=== PATIENT | male | born 1985 | race Caucasian/White ===

== ENCOUNTER 2024-03-17 12:22 | Outpatient (OUT) | payer BC, SELFPAY ==
[2024-03-17 13:12] LABS: Albumin Level 3.8 g/dL (3.4-5.0); Anion Gap 13.6; BUN Creatinine Ratio 22.1; Calcium 9.5 mg/dL (8.5-10.1); Carbon Dioxide 26.4 mmol/L (21.0-32.0); Chloride 99 mmol/L (98-107); Chol HDL Ratio 3.2; Cholesterol 198 mg/dL (<=200); Estimated GFR (African America >60 (>=60); Estimated GFR (Non-African Ame >60 (>=60); Glucose 146 mg/dL (74-106); HDL Cholesterol 61 mg/dL (40-60); Phosphorus 2.8 mg/dL (2.6-4.7); Sodium 135 mmol/L (136-145); Triglycerides 144 mg/dL (<=150); VLDL CHOLESTEROL 28.8 mg/dL
[2024-03-17 13:13] LABS: Creatinine Urine Random 100.33 mg/dL (20.00-300.00); Microalbum Creatinine Ratio Ur 30.8 mg/g (0.0-29.9); Microalbumin Urine Random 3.1 mg/dL (<=30.0)
[2024-03-18 08:13] LABS: C-Peptide, Serum 1.7 ng/mL (1.1-4.4)
== END 2024-03-17 12:23 | disposition home or self-care (01) ==
LOC: LAB 12:30
PROVIDERS: PCP Internal Medicine; Visit Provider Internal Medicine
DX: E78.2 Mixed hyperlipidemia (principal); E11.65 Type 2 diabetes mellitus with hyperglycemia; Z79.4 Long term (current) use of insulin; E55.9 Vitamin D deficiency, unspecified
CPT/HCPCS: 36415; 80061; 80069; 82043; 82306; 82570; 84681

== ENCOUNTER 2025-01-03 14:44 | Emergency (ER) | payer BC, SELFPAY ==
[2025-01-03] VITALS (30 sets, daily range): BP systolic 131–138; BP diastolic 78–80; PULSE 74–92; TEMP 36.4; O2SAT 96–99; BMI 41.2
--- OUTSIDE RECORDS SUMMARY | 2025-01-03 14:50 | XMS_ITS | CCD ---
Demographics Address [address] [facility] [address] [place] [address] Preferred Language en Marital Status Christianity Affiliation Unknown Race White Ethnic Group Not or Lati no Author Organization [facility] Care Team Providers Care Curriculum Writer Name Role Phone Community, Outreach Primary Care Unavailable Laurence Jacome Attending Unavailable Laurence Jacome Admitting Unavailable Mummert DO, Yaya W Primary Care Provider PEACE GARCIA Attending Unavailable PEACE GARCIA Attending Unavailable Mummert DO, Yaya Primary Care Unavailable Mummert DO, Yaya Attending Unavailable Mummert DO, Yaya Primary Care Unavailable Mummert DO, Yaya Attending Unavailable Mummert DO, Yaya Attending Unavailable Mummert DO, Yaya Primary Care Unavailable Mummert DO, Yaya Attending Unavailable Mummert DO, Yaya Primary Care Unavailable Mummert DO, Yaya Primary Care Unavailable Mummert DO, Yaya Primary Care Unavailable Mummert DO, Yaya Primary Care Unavailable Mummert DO, Yaya Attending Unavailable Mummert DO, Yaya Primary Care Unavailable Mummert DO, Yaya Attending Unavailable Mummert DO, Yaya Primary Care Unavailable Allergies Allergy Classification Reported Allergen(s) Allergy Type Date of Onset Reaction(s) Facility (1 source) liraglutide; Translations: [Victoza] Drug Allergy [facility] Repository Medications Current Medications Medication Drug Class(es) Dates Sig (Normalized) Sig (Original) empagliflozin 25 mg oral tablet (7 sources) Sodium-Glucose Cotransporter 2 Inhibitor Start: 02-21-2024 take 1 tablet by mouth once daily empagliflozin (Jardiance) 25 MG Take 1 tablet by mouth Daily 02/21/2024 Active Start: 08-22-2023 take 1 tablet by waqas th once daily Empagliflozin (Jardiance) 10 mg tablet Active 10 MG PO Daily August 22, 2023 1:00am 1.5 ml insulin glargine 300 unt/ml pen injector (6 sources) Insulin Analog Start: 09-17-2023 insulin glargi ne (Toujeo SoloStar) 300 UNIT/ML injection Inject 50 Units under the skin Daily 09/17/2023 Active Insulin Glargine U-300 Conc (Toujeo Solostar U-300 Insulin) 300 unit/mL (1.5 mL) insulin pen (2 sources) Start: 10-28-2023 Insulin Glargi ne U-300 Conc (Toujeo Solostar U-300 Insulin) 300 unit/mL (1.5 mL) insulin pen Active 40 UNIT SUBCUT Daily October 28, 2023 9:40am Start: 08-22-2023 End: 10-28-2023 inject 30 [IU] by subcutaneous injection once daily Insulin Glargine U-300 Conc (Toujeo Solostar U-300 Insulin) 300 unit/mL (1.5 mL) insulin pen Discontinued 30 UNIT SUBCUT Daily August 22, 2023 1:00am October 28, 2023 9:40am lisinopril 20 mg oral tablet (7 sources) Angiotensin Converting Enzyme Inhibitor Start: 11-12-2023 take 1 tablet by mouth once daily lisinopril 20 MG tablet Take 1 tablet by mouth Daily 11/12/2023 Active Start: 08-22-2023 take 20 mg by mouth once daily Lisinopril Active 20 MG PO Daily August 22, 2023 1:00am metFORMIN hydrochloride 1000 mg oral tablet (7 sources) Biguanide Start: 08-22-2023 take 1 tablet by mouth in the morning metFORMIN (Glucophage) 1000 MG tablet Take 1 tablet by mouth in the morning and 1 tablet in the evening. Take with meals. 10/07/2023 Active mupirocin 0.02 mg/mg topical ointment (1 source) RNA Synthetase Inhibitor Antibacterial Start: 10-28-2023 Mupirocin Active 1 APPLIC TOPICAL Three times daily 07 04October 28, 2023 12:00am oseltamivir 75 mg oral capsule (1 source) Neuraminidase Inhibitor Start: 08-22-2023 take 1 capsule by mouth twice daily Oseltamivir (Tamiflu) 75 mg capsule Active 75 MG PO Twice daily 03 21August 22, 2023 1:00am rosuvastatin calcium 10 mg oral tablet (7 sources) HMG-CoA Reductase Inhibitor Start: 08-12-2023 take 1 tablet by mouth once daily rosuvastatin (Crestor) 10 MG tablet Take 1 tablet by mouth Daily 08/12/2023 Active valACYclovir 1000 mg oral tablet (1 source) Herpesvirus Nucleoside Analog DNA Polymerase Inhibitor, Herpes Simplex Virus Nucleoside Analog DNA Polymerase Inhibitor, Herpes Zoster Virus Nucleoside Analog DNA Polymerase Inhibitor Start: 10-28-2023 take 1000 mg by mouth every twelve hours Valacyclovir Active 1000 MG PO Every 12 hours 20 October 28, 2023 12:00am Problems Problem Classification Problem Date Documented Date Episodic/Chronic Diabetes mellitus with complications (4 sources) Hyperglycemia due to type 2 diabetes mellitus; Translations: [Type 2 diabetes mellitus with hyperglycemia] 04-13-2024 Chronic Diabetes mellitus without complication (1 source) Diabetes mellitus; Translations: [Type 2 diabetes mellitus without complications] 08-22-2023 Chronic Disorders of lipid metabolism (5 sources) Hypercholesterolemia ; Translations: [Pure hypercholesterolemia , unspecified] 08-22-2023 Chronic Essential hypertension (5 sources) Hypertensive disorder; Translations: [Essential (primary) hypertension] 08-22-2023 Chronic Immunizations and screening for infectious disease (1 source) Contact with or exposure to other viral diseases; Translations: [Exposure to 2019 novel coronavirus] 08-22-2023 Episodic Influenza (1 source) Influenza due to other identified influenza virus with other respiratory manifestations; Translations: [Influenza due to identified 2008 H1N1 influenza virus with other respiratory manifestations] 08-22-2023 Episodic Nutritional deficiencies (4 sources) Vitamin D deficiency; Translations: [Vitamin D deficiency, unspecified] 04-13-2024 Chronic Other aftercare (4 sources) Long-term current use of insulin; Translations: [buttermaker continuous churn (current) use of insulin] 04-13-2024 Episodic Other nutritional; endocrine; and metabolic disorders (4 sources) Severe obesity; Translations: [Class 3 severe obesity due to excess calories with serious comorbidity and body mass index (BMI) of 40.0 to 44.9 in adult (CMS/[facility]ERLY [facility])] 04-13-2024 Chronic Residual codes; unclassified (2 sources) High risk heterosexual behavior; Translations: [High-risk sexual behavior] Onset: 10-28-2023 10-28-2023 Episodic Results Test Name Value Interpretation Reference Range Facility Glucose (Bld) [Mass/Vol]Orde red By: Jackie Floyd on 08-04-2024 Glucose Blood, POC 125 mg/dL [facility] 08-04-2024 HbA1c (Bld) [Mass fraction] 9.4 % [facility] No Panel InformationOrdered By: Ajckie Everett on 08-04-2024 [facility] Glucose (Bld) [Mass/Vol]Orde red By: Jackiemilla Floyd on 04-13-2024 Glucose Blood, POC 133 mg/dL [facility] - Other Lab [facility] - Other Lab Results [id number] Normal [facility] Chlamydia/GC/Trich NAAon Chlamydia Trachomotis, WHITNEY Negative Normal Negative [facility] Comment on above: Performed By: #### H ERPES 1,2, GCCHLAMTRI #### [facility] , Neisseria Gonorrhoeae, WHITNEY Negative Normal Negative [facility] Comment on above: Performed By: #### H ERPES 1,2, GCCHLAMTRI #### [facility] , Trichomonas WHITNEY Negative Normal Negative [facility] Comment on above: Result Comment: Perf ormed at: = - [facility] [address] [id number] Field Crop Farmer: Lindsey Mckeon MD, Phone: [phone] Performed By: #### H ERPES 1,2, GCCHLAMTRI #### [facility] , Herpes Simplex 1 and 2, NAAo n 10-28-2023 HSV 1 WHITNEY Negative Normal Negative [facility] Comment on above: Result Comment: This test was developed and its performance characteristics determined by [facility]. It has not been cleared or approved by the Food and Drug Administration. Performed By: #### H ERPES 1,2, GCCHLAMTRI #### [facility] , HSV 2 WHITNEY Positive Critically abnormal Negative [facility] Comment on above: Result Comment: This test was developed and its performance characteristics determined by [facility]. It has not been cleared or approved by the Food and Drug Administration. Performed at: - [facility] [id number] [employer] Farmer: Og Wilson MD, Phone: [phone] PERFORMED BY: [facility] [place] [address] PATHOLOGIST SODIUM METHYLATE OPERATOR CARISA MATTHEWS M.D. Performed By: #### H ERPES 1,2, GCCHLAMTRI #### [facility] , COVID Cepheidon 08-22-2023 SARS-CoV-2 (COVID-19) RNA WHITNEY+probe Ql (Unsp spec) Negative [facility] No Panel Informationon 08-21 POC Influenza A (PCR) Positive [facility] POC Influenza B (PCR) Negative [facility] Vital Signs Date Time Vital Sign Value Performing Clinician Facility 08-04-2024 09:55-0500 Body height 189.2 cm Peace Garcia MD Work Phone: [facility] 08-04-2024 09:55-0500 Body mass index (BMI) [Ratio] 42.31 kg/m2 Peace Garcia MD Work Phone: [facility] 08-04-2024 09:55-0500 Body weight 151.5 kg Peace Garcia MD Work Phone: [facility] 08-04-2024 09:55-0500 Diastolic blood pressure 72 mm[Hg] Peace Garcia MD Work Phone: [facility] 08-04-2024 09:55-0500 Heart rate 78 /min Peace Garcia MD Work Phone: [facility] 08-04-2024 09:55-0500 Respiratory rate 18 /min Peace Garcia MD Work Phone: [facility] 08-04-2024 09:55-0500 SaO2% (BldA) [Mass fraction] 98 % Peace Garcia MD Work Phone: [facility] 08-04-2024 09:55-0500 Systolic blood pressure 150 mm[Hg] Peace Garcia MD Work Phone: [facility] 04-13-2024 10:12-0400 Body height 190.5 cm Peace Garcia MD Work Phone: [facility] 04-13-2024 10:12-0400 Body mass index (BMI) [Ratio] 40.25 kg/m2 Peace Garcia MD Work Phone: [facility] 04-13-2024 10:12-0400 Body weight 146.06 kg Peace Garcia MD Work Phone: [facility] 04-13-2024 10:12-0400 Diastolic blood pressure 80 mm[Hg] Peace Garcia MD Work Phone: [facility] 04-13-2024 10:12-0400 Heart rate 75 /min Peace Garcia MD Work Phone: [facility] 04-13-2024 10:12-0400 Respiratory rate 16 /min Peace Garcia MD Work Phone: [facility] 04-13-2024 10:12-0400 Systolic blood pressure 126 mm[Hg] Peace Garcia MD Work Phone: [facility] 10-28-2023 09:40-0400 Body height 190.5 cm [facility] 10-28-2023 09:40-0400 Body mass index (BMI) [Ratio] 38.9 kg/m2 [facility] 10-28-2023 09:40-0400 Body temperature 98.1 [degF] [facility] 10-28-2023 09:40-0400 Body weight 141.52 kg [facility] 10-28-2023 09:40-0400 Diastolic blood pressure 83 mm[Hg] [facility] 10-28-2023 09:40-0400 Heart rate 80 /min [facility] 10-28-2023 09:40-0400 Respiratory rate 18 /min [facility] 10-28-2023 09:40-0400 SaO2% (BldA) [Mass fraction] 98 % [facility] 10-28-2023 09:40-0400 Systolic blood pressure 140 mm[Hg] [facility] 08-22-2023 15:02-0500 Body height 190.5 cm [facility] 08-22-2023 15:02-0500 Body mass index (BMI) [Ratio] 40.4 kg/m2 [facility] 08-22-2023 15:02-0500 Body temperature 97.9 [degF] [facility] 08-22-2023 15:02-0500 Body weight 146.51 kg [facility] 08-22-2023 15:02-0500 Diastolic blood pressure 79 mm[Hg] [facility] 08-22-2023 15:02-0500 Heart rate 75 /min [facility] 08-22-2023 15:02-0500 Respiratory rate 18 /min [facility] 08-22-2023 15:02-0500 SaO2% (BldA) [Mass fraction] 97 % [facility] 08-22-2023 15:02-0500 Systolic blood pressure 130 mm[Hg] [facility] Encounters Encounter Date Encounter Type Care Provider Facility Start: 10-19-2024 End: 10-19-2024 ambulatory Yaya Mummert DO [facility] Start: 09-10-2024 ambulatory Yaya Mummert DO Faci [facility]ity: [facility] Start: 08-18-2024 ambulatory Yaya Mummert DO Faci lity: [facility] Start: 08-04-2024 End: 08-04-2024 Bamboo flowsheet Peace Garcia MD Work Phone: [facility] Start: 08-04-2024 End: 08-04-2024 Carissa flowsshaista Garcia MD Work Phone: [facility] Start: 08-04-2024 End: 08-04-2024 ambulatory PEACE GARCIA Not Available Start: 08-04-2024 End: 08-04-2024 Office outpatient visit 25 minutes Peace Garcia MD Work Phone: [facility] Comment on above: Type 2 diabetes flakita itus with hyperglycemia, with long-term current use of insulin (CMS/HCC) (Primary Dx); Vitamin D deficiency; Insulin long-term use (CMS/HCC); Hyperlipemia, mixed (CMS/HCC); Primary hypertension (CMS/HCC); Class 3 severe obesity due to excess calories with serious comorbidity and body mass index (BMI) of 40.0 to 44.9 in adult (CMS/HCC) Start: 04-13-2024 End: 04-13-2024 BamMeetricso Cylexheet Peace Garcia MD Work Phone: [facility] Start: 04-13-2024 End: 04-13-2024 Bolt.ioheet Peace Garcia MD Work Phone: [facility] Start: 04-13-2024 End: 04-13-2024 Office outpatient visit 25 minutes Peace Garcia MD Work Phone: [facility] Comment on above: Type 2 diabetes flakita itus with hyperglycemia, with long-term current use of insulin (CMS/HCC) (Primary Dx); Vitamin D deficiency; Insulin long-term use (CMS/HCC); Hyperlipemia, mixed (CMS/HCC); Primary hypertension (CMS/HCC); Class 3 severe obesity due to excess calories with serious comorbidity and body mass index (BMI) of 40.0 to 44.9 in adult ([facility]/HCC) Start: 04-13-2024 End: 04-13-2024 ambulatory PEACE GARCIA Not Available Start: 02-21-2024 End: 02-21-2024 ambulatory Yaya Mummert DO Facility[facility] Start: 02-12-2024 End: 02-12-2024 ambulatory Ayya Mummert DO Facility: [facility] Start: 01-29-2024 ambulatory Yaya Mummert DO Faci [facility]ity: [facility] Start: 01-02-2024 ambulatory Yaya Mummert DO Faci [facility]ity: [facility] Start: 12-26-2023 ambulatory Yaya Mummert DO Faci [facility]ity: [facility] Start: 11-12-2023 End: 11-12-2023 ambulatory Yaya Nugent DO Facility:[facility] Start: 10-28-2023 End: 10-28-2023 ambulatory Outreach [facility] Facility:[facility] Start: 10-28-2023 End: 10-28-2023 ambulatory [facility] Work Phone: Start: 10-28-2023 End: 10-28-2023 Patient encounter procedure [facility] Work Phone: Start: 08-22-2023 End: 08-22-2023 Patient encounter procedure [facility] Work Phone: Procedures Date Procedure Procedure Detail Performing Clinician Start: 08-04-2024 Gluc bld gluc mntr d ev cleared fda spec home use Peace Garcia MD Work Phone: Start: 04-13-2024 Gluc bld gluc mntr d ev cleared fda spec home use Peace Garcia MD Work Phone: Plan of Treatment Date Care Activity Detail Author Start: 12-01-2024 End: 12-01-2024 Patient encounter procedure 12/01/2024 9:50 AM EDT Office Visit [facility] [address] [place] [id number] Peace Gracia MD [address] [place] [address] [facility] Start: 08-03-2024 End: 08-03-2024 Patient encounter procedure 08/03/2024 9:40 AM EST [facility] [address] [place] [phone] Peace Garcia MD [address] [place] [address] [facility] Start: 04-13-2024 End: 04-13-2024 Patient encounter procedure 04/13/2024 10:10 AM EDT Office Visit [facility] [address] [place] [address] Peace Garcia MD [address] [place] [address] Type 2 diabetes mellitus with hyperglycemia, with long-term current use of insulin ([facility]) [facility] Comment on above: Type 2 diabetes flakita itus with hyperglycemia, with long-term current use of insulin ([facility]) [facility] Immunizations Immunization Date Immunization Notes Care Provider Fa cili 04-12-2022 influenza, injectabl e, quadrivalent, preservative free Peace Garcia MD Work Phone: [facility] 03-30-2019 influenza, injectabl e, quadrivalent, preservative free Peace Garcia MD Work Phone: [facility] Payers Date Payer Category Payer Self-pay 2019 [facility] er [id number] 2019 Unknown [id number] 1984 Unknown [id number] [id number] 1984 Unknown [id number] [id number] 1984 Unknown [id number] [id number] [id number] 1984 Unknown [id number] [id number]. [id number] 1984 Unknown [id number] [id number]. 2.8 1984 Unknown [id number]. [id number] 1984 Unknown [id number] [id number] 1984 Unknown [id number] [id number] Unknown [id number] [id number] Social History Date Type Detail Facility Start: 08-22-2023 Tobacco smoking status DCIS Never smoked tobacco (finding) [facility] Start: 1985 Sex Assigned At Male F [facility] Tobacco smoking status [facility] Tobacco smoking consumption unknown [facility] Start: 1985 Sex assigned at Not on file [facility] Gender identity Not on file [facility] Medication management note 10-19-2024 Note Date & Type Note Facility 10-19-2024 Note Entered by CLARENCE GONZALEZ MA on October 19, 2024 08:06:36 EDT From: SHAHRAM GONZALEZ MA To: [facility]/pharmacy #[id number] Sent: 10/19/2024 08:06:36 EDT Subject: Medication Management Submitted: Complete:rosuvastatin (rosuvastatin 10 mg oral tablet) Signed by SHAHRAM GONZALEZ MA 10/19/2024 08:06:00 EDT Approved with modifications: rosuvastatin (ROSUVASTATIN CALCIUM 10 MG TAB) TAKE 1 TABLET BY MOUTH EVERY DAY Qty: 90 tab(s) Days Supply: 90 Refills: 3 Substitutions Allowed Route To Pharmacy - [facility]/pharmacy #[id number] Signed by SHAHRAM GONZALEZ MA Patient matched by SHAHRAM GONZALEZ MA on 10/19/2024 08:03:45 EDT From: [id number] To: Yaya Nugent DO, DO Sent: October 17, 2024 6:43:07 AM CDT Subject: Medication Management Due: October 18, 2024 12:19:22 AM CDT On Hold Pending Signature Dispensed Drug: rosuvastatin (rosuvastatin 10 mg oral tablet), TAKE 1 TABLET BY MOUTH EVERY DAY Quantity: 90 tab(s) Days Supply: 90 Refills: 3 Substitutions Allowed Notes from Pharmacy: [facility] History of Present illness Narrative 08-04-2024 Peace Garcia MD - 08/04/2024 9:40 AM EST Note Date & Type Note Facility 08-04-2024 History of Presen t illness Narrative Pat Mejia is a 39 y.o. male No ref. provider found presents with chief complaint of Diabetes and Follow-up HPI: IM 07/2024 Follow-up visit 08/04/2024 A1c with his primary 9.4, blood sugar in our office 125, currently is on Toujeo 55 units, Jardiance 25 mg once a day, metformin 1000 twice a day. IM 03/2024 Follow-up visit 04/13/2024 A1c with his primary 8.4, blood sugar in our office 133, lab done C-peptide 1.7, vitamin-D replaced by his PCP, total cholesterol 196, triglycerides 144, HDL 61, LDL 109, albumin over creatinine within normal limits, currently is on Toujeo 50 units, Jardiance 25 mg once a day, metformin 1000 twice a day. HPI: 11/2023 New patient sent from Dr. Yaya Nugent for uncontrolled diabetes. A1c in our office 8.1. Blood sugar 139. He has diabetes since 2011. No complication other than neuropathy. He is currently on Toujeo 40 and Jardiance 25, metformin 1000 twice a day. 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 Pioglitazone does not like it, so he stop it. He has recurrent pancreatitis, twice for GLP, so he cannot use it anymore. SUBJECTIVE: MEDICATIONS: Current Outpatient Medications Medication Instructions empagliflozin (Jardiance) 25 MG 1 tablet, Daily lisinopril 20 MG tablet 1 tablet, Daily metFORMIN (Glucophage) 1000 MG tablet 1 tablet, 2 times daily with meals rosuvastatin (Crestor) 10 MG tablet 1 tablet, Daily Toujeo SoloStar 50 Units, Daily ALLERGIES: No Known Allergies Past Medical History: Diagnosis Date Dietary counseling and surveillance HLD (hyperlipidemia) ([facility]) HTN (hypertension) ([facility]) Obesity with body mass index (BMI) of 30.0 to 39.9 Type 2 diabetes mellitus with hyperglycemia ([facility]) Vitamin D deficiency Past Surgical History: Procedure Laterality Date KNEE SURGERY Left NOSE SURGERY REVIEW OF SYMPTOMS: 14 POINT OF SYSTEM REVIEWED AND NEGATIVE OBJECTIVE: Constitutional: Afebrile @ home; no weakness or night sweats SKIN: No change in skin color; no itching, rash or lesions; no hair loss; HEENT: No HAs or injury; no dizziness; No difficulty with vision; no eye pain, discharge or lesions; no hearing loss or difficulty; no nasal discharge, NECK: No pain, limitation of motion, lumps or swollen glands RESP: No cough, wheezing or difficulty breathing. No CP with breathing; CARDIO: No CP , SOB or fatigue, No edema, palpitations or dyspnea with exertion GI: No N/V/D or abd. pain; good appetite with no recent change. No heart burn, liver or gallbladder disease; no rectal bleeding or pain : No urinary pain , frequency or odor. MUSCULOSKELETAL: No muscle pain or cramps; no extremity weakness.No joint pain, stiffness, swelling or limitation of movement NEUROLOGY: No H/O seizures, stroke or fainting. No weakness, tremors. Hematology: No bleeding problems or excessive bruising ENDOCRINE: No increase in hunger, thirst or urination; admits compliance to medical management plan Feet: numbness tingling no , ulcers or skin break no Lab Results Component Value Date HGBA1C 9.4 08/04/2024 Lab Results Component Value Date GLU 125 08/04/2024 GLU 133 04/13/2024 GLU 155 (H) 07/19/2022 11/26/2023 11:25 AM 04/13/2024 10:12 AM 08/04/2024 9:55 AM Vitals BMI 39.87 kg/m2 40.25 kg/m2 42.31 kg/m2 BSA (m2) 2.77 m2 2.78 m2 2.83 m2 Systolic 118 126 150 Diastolic 78 80 72 Heart Rate 71 75 78 SpO2 99 % 98 % Resp 18 16 18 Height (in) 6' 3 6' 3 6' 2.5 Weight (lb) 319 322 334 Visit Report Report Report ASSESSMENT AND PLAN: Assessment/Plan Diagnoses and all orders for this visit: Type 2 diabetes mellitus with hyperglycemia, with long-term current use of insulin ([facility]) - POCT glucose manually resulted - POCT glycosylated hemoglobin (Hb A1C) docked device I will c/o his Toujeo to 55 units at bedtime, continue with metformin 1000 twice a day, continue with Jardiance 25 mg once a day we will see him in 4 months. Vitamin D deficiency Insulin long-term use ([facility]) Hyperlipemia, mixed ([facility]) Primary hypertension ([facility]) Class 3 severe obesity due to excess calories with serious comorbidity and body mass index (BMI) of 40.0 to 44.9 in adult ([facility] Diet and exercise reviewed with the patient Follow up in about 4 months (around 12/02/2024). documented in this encounter [facility] Medication management note 05-20-2024 Note Date & Type Note Facility 05-20-2024 Note Entered by CLARENCE GONZALEZ MA on May 20, 2024 14:32:29 EST From: SHAHRAM GONZALEZ MA To: [facility][id number] Sent: 05/20/2024 14:32:28 EST Subject: Medication Management Submitted: Complete:insulin glargine (Toujeo SoloStar 300 units/mL subcutaneous solution) Signed by SHAHRAM GONZALEZ MA 05/20/2024 14:32:00 EST Approved with modifications: insulin glargine (TOUJEO SOLOSTAR 300 UNIT/ML) INJECT 30 UNITS UNDER THE SKIN ONCE DAILY Qty: 9 unknown unit Days Supply: 90 Refills: 3 Substitutions Allowed Route To Pharmacy - [facility]/pharmacy #[id number] Signed by SHAHRAM GONZALEZ MA From: [facility] [id number] To: Yaya Nugent DO, DO Sent: May 20, 2024 1:25:00 PM [employer] Subject: Medication Management Due: May 21, 2024 12:03:22 AM CAR PRE [employer]ER On Hold Pending Signature Dispensed Drug: insulin glargine (Toujeo SoloStar 300 units/mL subcutaneous solution), INJECT 30 UNITS UNDER THE SKIN ONCE DAILY Quantity: 9 unknown unit Days Supply: 90 Refills: 1 Substitutions Allowed Notes from Pharmacy: [facility] History of Present illness Narrative 04-13-2024 Peace Garcia MD - 04/13/2024 10:10 AM EDT Note Date & Type Note Facility 04-13-2024 History of Presen t illness Narrative Pat Mejia is a 39 y.o. male No ref. provider found presents with chief complaint of Diabetes and Follow-up (LAB IN EPIC/A1C 6 WEEKS AGO 8.5%) HPI: IM 03/2024 Follow-up visit 04/13/2024 A1c with his primary 8.4, blood sugar in our office 133, lab done C-peptide 1.7, vitamin-D replaced by his PCP, total cholesterol 196, triglycerides 144, HDL 61, LDL 109, albumin over creatinine within normal limits, currently is on Toujeo 50 units, Jardiance 25 mg once a day, metformin 1000 twice a day. HPI: 11/2023 New patient sent from Dr. Yaya Nugent for uncontrolled diabetes. A1c in our office 8.1. Blood sugar 139. He has diabetes since 2011. No complication other than neuropathy. He is currently on Toujeo 40 and Jardiance 25, metformin 1000 twice a day. 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 Pioglitazone does not like it, so he stop it. He has recurrent pancreatitis, twice for GLP, so he cannot use it anymore. SUBJECTIVE: MEDICATIONS: Current Outpatient Medications Medication Instructions empagliflozin (Jardiance) 25 MG 1 tablet, Daily lisinopril 20 MG tablet 1 tablet, Daily metFORMIN (Glucophage) 1000 MG tablet 1 tablet, 2 times daily with meals rosuvastatin (Crestor) 10 MG tablet 1 tablet, Daily Toujeo SoloStar 50 Units, Daily ALLERGIES: No Known Allergies Past Medical History: Diagnosis Date Dietary counseling and surveillance HLD (hyperlipidemia) ([facility]) HTN (hypertension) ([facility]) Obesity with body mass index (BMI) of 30.0 to 39.9 Type 2 diabetes mellitus with hyperglycemia ([facility]) Vitamin D deficiency Past Surgical History: Procedure Laterality Date KNEE SURGERY Left NOSE SURGERY REVIEW OF SYMPTOMS: 14 POINT OF SYSTEM REVIEWED AND NEGATIVE OBJECTIVE: Constitutional: Afebrile @ home; no weakness or night sweats SKIN: No change in skin color; no itching, rash or lesions; no hair loss; HEENT: No HAs or injury; no dizziness; No difficulty with vision; no eye pain, discharge or lesions; no hearing loss or difficulty; no nasal discharge, NECK: No pain, limitation of motion, lumps or swollen glands RESP: No cough, wheezing or difficulty breathing. No CP with breathing; CARDIO: No CP , SOB or fatigue, No edema, palpitations or dyspnea with exertion GI: No N/V/D or abd. pain; good appetite with no recent change. No heart burn, liver or gallbladder disease; no rectal bleeding or pain : No urinary pain , frequency or odor. MUSCULOSKELETAL: No muscle pain or cramps; no extremity weakness.No joint pain, stiffness, swelling or limitation of movement NEUROLOGY: No H/O seizures, stroke or fainting. No weakness, tremors. Hematology: No bleeding problems or excessive bruising ENDOCRINE: No increase in hunger, thirst or urination; admits compliance to medical management plan Feet: numbness tingling , ulcers or skin break No results found for: HGBA1C Lab Results Component Value Date GLU 133 04/13/2024 GLU 155 (H) 07/19/2022 GLU 161 (H) 07/18/2022 Visit Vitals BP 126/80 Pulse 75 Resp 16 Ht 6' 3 Wt 322 lb BMI 40.25 kg/m BSA 2.78 m ASSESSMENT AND PLAN: Assessment/Plan Diagnoses and all orders for this visit: Type 2 diabetes mellitus with hyperglycemia, with long-term current use of insulin ([facility]) - POCT glucose manually resulted I will increase his Toujeo to 55 units at bedtime, continue with metformin 1000 twice a day, continue with Jardiance 25 mg once a day we will see him in 4 months, he is not interested with prandial insulin at this time. Vitamin D deficiency Level 17 replace by his PCP Insulin long-term use ([facility]) Hyperlipemia, mixed ([facility]) LDL 109 ON 03/2024, continue with Crestor Primary hypertension ([facility]) Class 3 severe obesity due to excess calories with serious comorbidity and body mass index (BMI) of 40.0 to 44.9 in adult ([facility]) Diet and exercise reviewed with the patient Follow up in about 4 months (around 08/14/2024). documented in this encounter [facility] Medication management note 02-21-2024 Note Date & Type Note Facility 02-21-2024 Note Entered by CLARENCE GONZALEZ MA on February 21, 2024 10:12:44 EDT From: SHAHRAM GONZALEZ MA To: [facility]/pharmacy #[id number] Sent: 02/21/2024 10:12:44 EDT Subject: Medication Management Submitted: Complete:empagliflozin (empagliflozin 25 mg oral tablet) Signed by SHAHRAM GONZALEZ MA 02/21/2024 10:12:00 EDT Approved with modifications: empagliflozin (JARDIANCE 25 MG TABLET) TAKE 1 TABLET BY MOUTH EVERY MORNING Qty: 90 tab(s) Days Supply: 90 Refills: 3 Substitutions Allowed Route To Pharmacy - [facility]/pharmacy #[id number] Signed by SHAHRAM GONZALEZ MA Patient matched by SHAHRAM GONZALEZ MA on 02/21/2024 10:12:16 EDT From: [address] [id number] To: Yaya Nugent DO, DO Sent: February 21, 2024 9:06:59 AM CDT Subject: Medication Management Due: February 22, 2024 12:08:35 AM CDT On Hold Pending Signature Dispensed Drug: empagliflozin (Jardiance 25 mg oral tablet), TAKE 1 TABLET BY MOUTH EVERY MORNING Quantity: 90 tab(s) Days Supply: 90 Refills: 3 Substitutions Allowed Notes from Pharmacy: [facility] Medication management note 11-12-2023 Note Date & Type Note Facility 11-12-2023 Note Entered by CLARENCE GONZALEZ on November 12, 2023 07:48:50 EDT From: SHAHRAM [facility]ON[facility]ALEZ [id number] Sent: 11/12/2023 07:48:50 EDT Subject: Medication Management Submitted: Complete:lisinopril (lisinopril 20 mg oral tablet) Signed by SHAHRAM GONZALEZ 11/12/2023 07:48:00 EDT Approved with modifications: lisinopril (LISINOPRIL 20 MG TABLET) TAKE 1 TABLET BY MOUTH EVERY DAY Qty: 90 tab(s) Days Supply: 90 Refills: 3 Substitutions Allowed Route To Pharmacy - [facility]/pharmacy #[id number] Signed by SHAHRAM GONZALEZ Patient matched by SHAHRAM GONZALEZ on 11/12/2023 07:46:00 EDT From: [address] [id number] To: Yaya Nugent DO, DO Sent: November 09, 2023 6:40:46 AM CDT Subject: Medication Management Due: November 10, 2023 12:12:11 AM CDT On Hold Pending Signature Dispensed Drug: lisinopril (lisinopril 20 mg oral tablet), TAKE 1 TABLET BY MOUTH EVERY DAY Quantity: 90 tab(s) Days Supply: 90 Refills: 1 Substitutions Allowed Notes from Pharmacy: [facility] Evaluation note Note Date & Type Note Facility Evaluation note Diagnosis Onset Date Contact with and (suspected) exposure to covid-19 noneactive Influenza A (H1N1) noneactiv e High risk sexual behavior no neactive [facility] Work Phone: Evaluation note Note Date & Type Note Facility Evaluation note Diagnosis Type 2 diabetes mellitus with hyperglycemia, with long-term current use of insulin ([facility])- Primary Vitamin D deficiency Insulin long-term use ([facility]) Encounter for long-term (current) use of insulin Hyperlipemia, mixed ([facility]) Mixed hyperlipidemia Primary hypertension ([facility]) Unspecified essential hypertension Class 3 severe obesity due to excess calories with serious comorbidity and body mass index (BMI) of 40.0 to 44.9 in adult ([facility]) documented in this encounter [facility] Evaluation note Note Date & Type Note Facility Evaluation note Diagnosis Type 2 diabetes mellitus with hyperglycemia, with long-term current use of insulin ([facility])- Primary Vitamin D deficiency Insulin long-term use ([facility]) Encounter for long-term (current) use of insulin Hyperlipemia, mixed ([facility]) Mixed hyperlipidemia Primary hypertension ([facility]) Unspecified essential hypertension Class 3 severe obesity due to excess calories with serious comorbidity and body mass index (BMI) of 40.0 to 44.9 in adult ([facility]) documented in this encounter [facility] Chief Complaint and Reason for Visit Chief Complaint lost voice, cough rash on lower region Reason for Visit Contact with and (gonzales spected) exposure to covid-19 Influenza A (H1N1) High risk sexual behavior Family History No Family History Records Found Relationship Condition Age at Onset Recorded Date/T isaiah father Heart disease Unknown Not Specified Diabetes mellitus Unknown Advance Directives No Advanced Directives Records Found Advance Directive Response Recorded Date/ Time Advance Directives No August 21 3:58pm Summary Purpose Additional Source Comments Care Teams (unrecognized sec tion and content) Team Status: Active Member Role Status Dates [facility] Primary Care Provider Active Team Status: Inactive Member Role Status Dates Jailene Monique APRN Attending Provider Active Start: August 22, 2023 End: August 22, 2023 [facility] Primary Care Provider Active Start: August 22, 2023 End: August 22, 2023 Team Status: Inactive Member Role Status Dates [facility] Primary Care Provider Active Start: October 28, 2023 End: October 28, 2023 Laurence Jacome APRN Attending Provider Active Start: October 28, 2023 End: October 28, 2023 Curriculum Writer Relationship Specialty Start Date End Date Yaya Nugent DO [address] [place] [phone] PCP - General Internal Medicine 02/07/24 Curriculum Writer Relationship Specialty Start Date End Date Yaya Nugent DO [address] [place] [address] PCP - General Internal Medicine 02/07/24 Curriculum Writer Relationship Specialty Start Date End Date Yaya Nugent DO [address] [place] [phone] PCP - General Internal Medicine 02/07/24 Curriculum Writer Relationship Specialty Start Date End Date Yaya Nugent DO [address] [place] [address] PCP - General Internal Medicine 02/07/24 Goals (unrecognized section and content) Goals may be documented in a n alternate section (unrecognized sect ion and content) No Status Records FoundNo Status Records FoundNo Status Records Found INFORMATION SOURCE (unrecogn ized section and content) DATE CREATED AUTHOR 11/05/2023 [facility] DATE CREATED AUTHOR AUTHOR'S ORGANIZ ATION 08/05/2024 [facility] DATE CREATED AUTHOR AUTHOR'S ORGANIZ ATION 10/22/2024 [facility] Reason for Visit (unrecogniz ed section and content) Reason Comments Diabetes Follow-up LAB IN RCNAB1K 6 WE AGO 8.5% Reason Comments Diabetes Follow-up FOR RECORDS PERTAINING TO PATIENTS WHO ARE OR HAVE BEEN ENROLLED IN A CHEMICAL DEPENDENCY/SUBSTANCEABUSE PROGRAM, SOME INFORMATION MAY BE OMITTED. This clinical summary was aggregated from multiple sources. Caution should be exercised in using it in the provision of clinical care. This summary normalizes information from multiple sources, and as a consequence, information in this document may materially change the coding, format and clinical context of patient data. In addition, data may be omitted in some cases. CLINICAL DECISIONS SHOULD BE BASED ON THE PRIMARY CLINICAL RECORDS. [employer] provides no warranty or guarantee of the accuracy or completeness of information in this document.
--- NOTE | 2025-01-03 14:54 | ECG_ITS ---
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 Measurements Intervals [place] Rate: 88 P: 56 IN: 158 QRS: 17 QRSD: 100 T: 30 QT: 374 QTc: 420 Interpretive Statements 1100 Sinus rhythm 9110 normal ECG No previous ECG available for comparison Electronically Signed On 01-03-2025 15:39:11 EDT by MARTÍNEZ GEORGE M.D.
--- NOTE | 2025-01-03 14:55 | XR_ITS ---
The [address] [address] Patient Name: PAT MICHAEL MRN: [id number] date: 1985 Sex: M Assigned Patient Location: ER Current Patient Location: ER Accession/Order Number: [id number] Exam Date: 01/03/2025 15:42 Report Date: 01/03/2025 15:43 At the request of: NERI CORNELIUS MD Procedure: XR chest 1V PA CHEST: CLINICAL HISTORY: pain COMPARISON: None Findings: Low lung volumes. Prominent cardiac silhouette likely technical. No definite airspace disease effusion or pneumothorax. XR/XR chest 1V IMPRESSION: Low lung volumes with slight prominent cardiac silhouette likely testicle. No definite acute airspace disease. Impression dictated by: Jean Paul Anderson M.D. 01/03/2025 3:43 PM Dictation Location: [place] [address] Electronically authenticated by: [id number] Y Date: 01/03/2025 15:43
[2025-01-03 15:06] LABS: Hematocrit 42.8 % (42.0-54.0); Hemoglobin 14.6 g/dL (14.0-18.0); Immature Granulocytes Abs Auto 0.04 10^3/uL (0.00-0.03); Immature Granulocytes Pct Auto 0.3 % (0.0-0.5); Lymphocytes Absolute Auto 1.7 10^3/uL (1.2-3.8); Mean Corpuscular HGB Conc 34.1 g/dL (29.9-35.2); Mean Corpuscular Hemoglobin 32.2 pg (25.9-34.0); Mean Corpuscular Volume 94.5 fL (80.0-94.0); Platelet Count 235 10^3/uL (150-450); Red Blood Count 4.53 10^6/uL (4.70-6.10); White Blood Count 13.2 10^3/uL (4.0-11.0)
[2025-01-03 15:26] LABS: Anion Gap 14.8
[2025-01-03 15:29] LABS: Alanine Aminotransferase 28 U/L (16-63); Albumin Globulin Ratio 0.9; Albumin Level 3.6 g/dL (3.4-5.0); Alkaline Phosphatase 97 U/L (46-116); Aspartate Amino Transferase 19 U/L (15-37); Blood Urea Nitrogen 17.0 mg/dL (7.0-18.0); Calcium 9.6 mg/dL (8.5-10.1); Carbon Dioxide 27.3 mmol/L (21.0-32.0); Chloride 101 mmol/L (98-107); Estimated GFR (African America >60 (>=60 mL/min/1.73m^2); Estimated GFR (Non-African Ame >60 (>=60 mL/min/1.73m^2); Globulin 4.2 g/dL; Glucose 135 mg/dL (74-106); Potassium 4.1 mmol/L (3.5-5.1); Sodium 139 mmol/L (136-145); Total Protein 7.8 g/dL (6.4-8.2)
[2025-01-03 15:31] LABS: INR 1.00; Prothrombin Time 10.6 sec (9.0-11.6)
[2025-01-03] MEDS: FAMOTIDINE/PF 20 MG/2 ML VIAL IV (15:31)
[2025-01-03] MEDS: KETOROLAC TROMETHAMINE 30 MG/ML VIAL IVP (15:31)
--- NOTE | 2025-01-03 15:36 | CT_ITS ---
The [address] [address] Patient Name: PAT MICHAEL MRN: [id number] date: 1985 Sex: M Assigned Patient Location: ER Current Patient Location: ER Accession/Order Number: [id number] Exam Date: 01/03/2025 16:34 Report Date: 01/03/2025 16:54 At the request of: NERI CORNELIUS MD Procedure: CT abdomen pelvis wo con CT ABDOMEN AND PELVIS WITHOUT INTRAVENOUS CONTRAST: CLINICAL HISTORY: RUQ PAIN epigastric pain COMPARISON: None TECHNIQUE: Spiral images were obtained through the abdomen and pelvis without intravenous contrast. This CT exam was performed using one or more following dose reduction techniques: Automated exposure control, adjustment of the mA and/or kV according to patient size, or use of iterative reconstruction technique. FINDINGS: Lung Bases: No airspace opacity Organs:Cholelithiasis. Low attenuation liver may suggest fatty infiltration. Right interpolar hypodensity suggestive of cysts. Questionable haziness pancreatic head neck region could be technical or related to artifact. Otherwise negative for nephrolithiasis or hydronephrosis. Otherwise spleen, adrenals, pancreas unremarkable. No definite peripancreatic fluid collections. GI: Mild to moderate retained stool the colon. No bowel obstruction. Appendix unremarkable.[ Pelvis:[Bladder and prostate unremarkable.] Peritoneum/Retroperitoneum:No free air or free fluid. Mild scattered aortic plaque.[ Abd wall/Bones: Multilevel degenerative change. CT/CT abdomen pelvis wo con IMPRESSION: Cholelithiasis and fatty infiltration liver. Questionable haziness pancreatic head neck junction could be technical or related to artifact. Correlate with pancreatic enzymes and history. Otherwise negative acute inflammatory process or bowel obstruction. Impression dictated by: Jean Paul Anderson M.D. 01/03/2025 4:54 PM Dictation Location: [place] [address] Electronically authenticated by: [id number] Y Date: 01/03/2025 16:54
[2025-01-03 16:09] LABS: Lipase 185.0 U/L (16.0-77.0)
--- NOTE | 2025-01-03 17:23 | ED_ITS ---
HPI HPI - General Adult General Chief complaint: Chest Pain Stated complaint: abdominal and chest pain Time Seen by Provider: 01/03/25 14:54 Source: patient Mode of arrival: walk-in Limitations: no limitations History of Present Illness HPI narrative: Patient with history of diabetes as well as hyperlipidemia is coming to the ER with 2 days history of right upper quadrant pain that has been getting worse, it started yesterday and according to the patient the pain is radiating to his back, the pain is not associate with nausea or vomiting and change in appetite, the patient mentioned that the pain was not related to food or eating He mentioned also that he have a very distant history of pancreatitis at that time he was told that it is due to medication as he was taking Ozempic Patient denies any fever or chills Related Data Home Medications �Medication �Instructions �Recorded �Confirmed empagliflozin 25 mg tablet 25 mg PO DAILY 01/03/25 (Jardiance) insulin glargine U-300 conc 300 55 unit subcut Q24H 01/03/25 unit/mL (1.5 mL) subcutaneous pen (Toujeo SoloStar U-300 Insulin) lisinopril 20 mg tablet 20 mg PO DAILY 01/03/2512/16 metformin 1,000 mg tablet 1,000 mg PO BID 01/03/25 rosuvastatin 10 mg tablet 10 mg PO DAILY 01/03/2512/16 Allergies Allergy/AdvReac Type Severity Reaction Status Date / Time No Known Drug Allergies Allergy Verified 01/03/25 14:53 Opioid HPI Opioid Management Most Recent Opioid Data: Last Pain Scale 8 Today, 15:03 Review of Systems ROS Status of ROS 10 or more systems reviewed and unremark able except as noted in history and below [facility] Medical History (Updated 01/03/25 @ 18:13 by Nayely Loredo MD) Pancreatitis �K85.90 - Acute pancreatitis without necrosis or infection, unspecified (ICD- 10) Hyperlipemia �E78.5 - Hyperlipidemia, unspecified (ICD-10) Hypertension �I10 - Essential (primary) hypertension (ICD-10) Diabetes �E11.9 - Type 2 diabetes mellitus without complications (ICD-10) Social History Little interest or pleasure in doing things: not at all Feeling down, depressed, or hopeless: not at all Exam Narrative Exam Narrative: Nurses notes and vital signs reviewed and patient is not hypoxic. General: Well-appearing and in no apparent distress. Skin: Warm, dry, no pallor noted. No rash. Head: Normocephalic, atraumatic. Neck: Supple, non-tender. Eye: Pupils are equal, round and EOMI. No scleral icterus. Cardiovascular: Regular Rate and Rhythm without murmur, gallop or rub. Respiratory: No accessory muscle use or respiratory distress. Lungs are clear to auscultation, no wheezing, rales or rhonchi Chest Wall: no tenderness Back: No midline thoracic or lumbar vertebral tenderness. No CVA tenderness Musculoskeletal: normal ROM, no calf or popliteal tenderness, no lower extremity edema/swelling GI: Abdomen is soft, distended in the right upper quadrant pain on superficial and deep palpation with positive Patterson sign Neurological: A&O x4. No cranial nerve dysfunction observed. No truncal ataxia Constitutional Vital Signs, click to edit/add: Last Vital Signs Temp 97.6 F 01/03/25 14:46 Pulse 76 01/03/25 18:10 Resp 18 01/03/25 18:12 BP 131/80 01/03/25 14:52 Pulse Ox 96 01/03/25 14:52 O2 Del Method Room Air 01/03/25 14:46 Course Vital Signs Vital signs: Vital Signs Temperature 97.6 F 01/03/25 14:46 Pulse Rate 92 H 01/03/25 14:46 Respiratory Rate 20 01/03/25 14:46 Blood Pressure 131/80 01/03/25 14:46 Pulse Oximetry 99 01/03/25 14:46 Oxygen Delivery Method Room Air 01/03/25 14:46 Temperature 97.6 F 01/03/25 14:46 Pulse Rate 76 01/03/25 18:10 Respiratory Rate 18 01/03/25 18:12 Blood Pressure 131/80 01/03/25 14:52 Pulse Oximetry 96 01/03/25 14:52 Oxygen Delivery Method Room Air 01/03/25 14:46 Medical Decision Making [facility] Narrative Medical decision making narrative: The patient EKG on arrival showing sinus rhythm with a heart rate of [address] elevation or depression The patient CBC shows mild leukocytosis at 13 and the chemistry shows elevated lipase of 188 but other than this the AST and ALT were normal It was noted that the patient had a significant right upper quadrant pain initially was treated with Toradol The patient CAT scan shows cholelithiasis but with no acute cholecystitis signs but the patient did had some hypodensity in the pancreatic head and neck junction that could be artifact But I did discuss the case with the general surgeon on-call Dr. Roy and he recommended the patient to be transferred to be admitted to the hospitalist Blood culture obtained the patient was started on Zosyn I did speak with the [facility]ist [facility] and after speaking with her and discussing the case the patient weight was an issue and she had to discuss the issue with Dr. Roy and call us back--------[facility] refused [facility] as they dont have bariatric surgey specialty I did speak with the [facility] and Dr. Mckay accepted the patient to his service awaiting the patient to be assigned a room . The patient does not want to be transferred by the ambulance I did explain to him the risk factor and the fact that he will be taking himself at risk by going by private car but he understand that completely and he does not want to carry the bill cost for that transfer. I did explain to the patient that he will be signing himself to go by the private car at his own risk and he had to stay n.p.o. until he get to the hospital. Lab Data Labs: Lab Results 01/03/25 01/03/25 Range/Units 14:56 17:47 WBC 13.2 H (4.0-11.0) 10^3/uL RBC 4.53 L (4.70-6.10) 10^6/uL Hgb 14.6 (14.0-18.0) g/dL Hct 42.8 (42.0-54.0) % MCV 94.5 H (80.0-94.0) fL MCH 32.2 (25.9-34.0) pg MCHC 34.1 (29.9-35.2) g/dL RDW 13.2 (11.0-15.0) % Plt Count 235 (150-450) 10^3/uL MPV 10.2 (9.5-13.5) fL Neut % (Auto) 79.3 H (43.0-75.0) % Lymph % (Auto) 12.8 L (20.5-60.0) % [place] % (Auto) 7.1 (1.7-12.0) % Eos % (Auto) 0.3 L (0.9-7.0) % Baso % (Auto) 0.2 (0.2-2.0) % Neut # (Auto) 10.4 H (1.4-6.5) 10^3/uL Lymph # (Auto) 1.7 (1.2-3.8) 10^3/uL [place] # (Auto) 0.9 H (0.3-0.8) 10^3/uL Eos # (Auto) 0.0 (0.0-0.7) 10^3/uL Baso # (Auto) 0.0 (0.0-0.1) 10^3/uL Abs Immat Gran (auto) 0.04 H (0.00-0.03) 10^3/uL Imm/Tot Granulo (auto) 0.3 (0.0-0.5) % PT 10.6 (9.0-11.6) sec INR 1.00 Sodium 139 (136-145) mmol/L Potassium 4.1 (3.5-5.1) mmol/L Chloride 101 (98-107) mmol/L Carbon Dioxide 27.3 (21.0-32.0) mmol/L Anion Gap 14.8 BUN 17.0 (7.0-18.0) mg/dL Creatinine 0.54 L (0.70-1.30) mg/dL Est GFR ( Amer) >60 (>=60 mL/min/1.73m^2) Est GFR (Non-Af Amer) >60 (>=60 mL/min/1.73m^2) BUN/Creatinine Ratio 31.5 Glucose 135 H (74-106) mg/dL Lactate 1.0 (0.4-2.0) mmol/L Calcium 9.6 (8.5-10.1) mg/dL Total Bilirubin 0.7 (0.2-1.0) mg/dL AST 19 (15-37) U/L ALT 28 (16-63) U/L Alkaline Phosphatase 97 (46-116) U/L Troponin I High Sens <4.0 L (4.0-76.1) pg/mL Total Protein 7.8 (6.4-8.2) g/dL Albumin 3.6 (3.4-5.0) g/dL Globulin 4.2 g/dL Albumin/Globulin Ratio 0.9 Lipase 185.0 H (16.0-77.0) U/L Discharge Plan Discharge Chief Complaint: Chest Pain Clinical Impression: Abdominal pain, RUQ Patient Disposition: [facility]
[2025-01-03] MEDS: PIPERACILLIN SODIUM/TAZOBACTAM 4.5 GM in 0.9 % SODIUM CHLORIDE 50 ML IV (18:06)
[2025-01-03 18:19] LABS: Lactate/Lactic Acid 1.0 mmol/L (0.4-2.0)
--- NOTE | 2025-01-03 19:52 | PC.NURSE ---
Report called to RN at [facility]. IV D/C'ed and pt went by private car to [facility]. He was instructed to remain NPO until he is admitted there. He verbalized understanding, and denies c/o at this time.
== END 2025-01-03 19:57 | disposition short-term general hospital (02) ==
PROVIDERS: Emergency Provider Emergency Medicine; PCP Internal Medicine
DX: R10.11 Right upper quadrant pain (principal); K80.20 Calculus of gallbladder without cholecystitis without obstruction; E11.9 Type 2 diabetes mellitus without complications; E78.5 Hyperlipidemia, unspecified; Z79.84 Long term (current) use of oral hypoglycemic drugs; Z79.4 Long term (current) use of insulin
CPT/HCPCS: 36415; 71045; 74176; 80053; 83605; 83690; 84484; 85025; 85610; 87040; 93005; 96365; 96375; 99285; J1885; J2543; J3490

== ENCOUNTER 2025-03-23 15:39 | Emergency (ER) | payer BC, SELFPAY ==
[2025-03-23 15:46] VITALS: BP 126/91; PULSE 127; TEMP 36.4; O2SAT 98; BMI 37.6
[2025-03-23] MEDS: KETOROLAC TROMETHAMINE 30 MG/ML VIAL IVP (16:17)
[2025-03-23] MEDS: 0.9 % SODIUM CHLORIDE 1,000 ML 1000 ML IV (16:18)
--- OUTSIDE RECORDS SUMMARY | 2025-03-23 16:19 | XMS_ITS | CCD ---
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 Name Role Phone Community, Outreach Primary Care Unavailable Laurence Jacome Attending Unavailable Laurence Jacome Admitting Unavailable Mummert DO, Rita W Primary Care Provider [phone] Nelson Alvarado Consulting Unavailable Sujit Mckay Admitting Unavailable Sujit Mckay Attending Unavailable MD Nelson Alvarado Consulting Unavailable Nelson Alvarado Consulting Unavailable Nelson Alvarado Consulting Unavailable Nelson Alvarado Consulting Unavailable Jim Cannon Attending Unavailable Nelson Alvarado Consulting Unavailable Sujit Mckay Admitting Unavailable MD Nelson Alvarado Consulting Unavailable Nelson Alvarado Consulting Unavailable Nelson Alvarado Consulting Unavailable Mummert DO, Rita Primary Care Unavailable Mummert DO, Rita Attending Unavailable Mummert DO, Rita Primary Care Unavailable Mummert DO, Rita Attending Unavailable Mummert DO, Rita Attending Unavailable Mummert DO, Rita Primary Care Unavailable Mummert DO, Rita Primary Care Unavailable Mummert DO, Rita Attending Unavailable Mummert DO, Rita Attending Unavailable Mummert DO, Rita Primary Care Unavailable Mummert DO, Rita Primary Care Unavailable Mummert DO, Rita Primary Care Unavailable Mummert DO, Rita Primary Care Unavailable PEACE ANTONY Attending Unavailable PEACE ANTONY Attending Unavailable PEACE ANTONY Attending Unavailable Nelson Alvarado Consulting Unavailable Allergies Allergy Classification Reported Allergen(s) Allergy Type Date of Onset Reaction(s) Facility (1 source) liraglutide; Translations: [Victoza] Drug Allergy [facility] Repository Medications Current Medications Medication Drug Class(es) Dates Sig (Normalized) Sig (Original) empagliflozin 25 mg oral tablet (10 sources) Sodium-Glucose Cotransporter 2 Inhibitor Start: 02-21-2024 take 1 tablet by mouth once daily empagliflozin (Jardiance) 25 MG Take 1 tablet by mouth Daily 02/21/2024 Active Start: 08-22-2023 take 1 tablet by waqas th once daily Empagliflozin (Jardiance) 10 mg tablet Active 10 MG PO Daily August 22, 2023 1:00am 1.5 ml insulin glargine 300 unt/ml pen injector (11 sources) Insulin Analog Start: 02-03-2025 End: 08-02-2025 insulin glargine (Toujeo SoloStar) 300 UNIT/ML injection Indications: Type 2 diabetes mellitus with hyperglycemia, with long-term current use of insulin (HCC) Inject 51 Units under the skin Daily 15.3 mL 1 02/03/2025 08/02/2025 Active Start: 09-17-2023 End: 02-03-2025 insulin glargine (Toujeo Zara oStar) 300 UNIT/ML injection Inject 50 Units under the skin Daily 09/17/2023 02/03/2025 Discontinued (Reorder) Insulin Glargine U-300 Conc (Toujeo Solostar U-300 [...] 2023 9:40am lisinopril 20 mg oral tablet (10 sources) Angiotensin Converting Enzyme Inhibitor Start: 11-12-2023 take 1 tablet by mouth once daily lisinopril 20 MG tablet Take 1 tablet by mouth Daily 11/12/2023 Active Start: 08-22-2023 take 20 mg by mouth once daily Lisinopril Active 20 MG PO Daily August 22, 2023 1:00am metFORMIN hydrochloride 1000 mg oral tablet (10 sources) Biguanide Start: 08-22-2023 take 1 tablet [...] 1:00am rosuvastatin calcium 10 mg oral tablet (10 sources) HMG-CoA Reductase Inhibitor Start: 08-12-2023 take [...] Active 1000 MG PO Every 12 hours 05 04October 28, 2023 12:00am Problems Problem Classification Problem Date Documented Date Episodic/Chronic Diabetes mellitus with complications (6 sources) Hyperglycemia due to type 2 diabetes mellitus; Translations: [Type 2 diabetes mellitus with hyperglycemia] 04-13-2024 Chronic Diabetes mellitus without complication (1 source) Diabetes mellitus; Translations: [Type 2 diabetes mellitus without complications] 08-22-2023 Chronic Disorders of lipid metabolism (7 sources) Hypercholesterolemia ; Translations: [Pure hypercholesterolemia , unspecified] 08-22-2023 Chronic Essential hypertension (7 sources) Hypertensive disorder; Translations: [Essential (primary) hypertension] 08-22-2023 Chronic Immunizations and screening for infectious disease (1 source) Contact with or exposure to other viral diseases; Translations: [Exposure to 2019 novel coronavirus] 08-22-2023 Episodic Influenza (1 source) Influenza due to other identified influenza virus with other respiratory manifestations; Translations: [Influenza due to identified 2009 H1N1 influenza virus with other respiratory manifestations] 08-22-2023 Episodic Nutritional deficiencies (6 sources) Vitamin D deficiency; Translations: [Vitamin D deficiency, unspecified] 04-13-2024 Chronic Other aftercare (6 sources) Long-term current use of insulin; Translations: [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] 04-13-2024 Episodic Other nutritional; endocrine; and metabolic disorders (6 sources) Severe obesity; Translations: [Class 3 severe obesity due to excess calories with serious comorbidity and body mass index (BMI) of 40.0 to 44.9 in adult ([facility])] 04-13-2024 Chronic Pancreatic disorders (not diabetes) (6 sources) Biliary acute pancreatitis without necrosis or infection; Translations: [K85.10] Onset: 01-03-2025 Episodic Residual codes; unclassified (2 sources) High risk heterosexual behavior; Translations: [High-risk sexual behavior] Onset: 10-28-2023 10-28-2023 Episodic Results Test Name Value Interpretation Reference Range Facility Glucose (Bld) [Mass/Vol]Orde red By: Jackie Floyd on 02-03-2025 Glucose Blood, POC 188 mg/dL [facility] - Hematology and Cell countson 02-03-2025 HbA1c (Bld) [Mass fraction] 8.2 % [facility] No Panel InformationOrdered By: Jackie Floyd on 02-03-2025 [facility] Trauma Office/Clinic Noteon 01-20-2025 Trauma Office/Clinic Note Trauma Office/Clinic Note History of Present Illness 39-year-old male status post laparoscopic cholecystectomy for gallstone pancreatitis. Patient reports he is doing well. Tolerating regular diet without issue. No nausea or vomiting. No fevers or chills. Some belly but incision pain but no drainage or redness of the incision. Has been having mild diarrhea but it is not bothering him. Overall improving as expected. Review of Systems All organ systems are reviewed. Pertinent positive and negative findings as mentioned in the HPI. Physical Exam General: alert, no acute distress Cardiovascular: denies chest pain, palpitations. Pt states normal rate Respiratory: respirations non labored talking in complete sentences on phone. No audible wheezing. Gastrointestinal: Denies pain, distension Reports incisions are CDI without redness or drainage. Neurological: oriented x 4, LOC appropriate for age, speech normal Psychiatric: cooperative, affect appropriate for age, normal judgement Assessment/Plan 39-year-old male status post laparoscopic cholecystectomy for gallstone pancreatitis. - Pathology reviewed and discussed with patient, no evidence of malignancy - Pt afebrile, VSS, incisions C/D/I without evidence of infection - Pt advancing as expected, tolerating diet w/o N/V. Voiding spontaneously - Pt to follow with EGS clinic as needed, no indication for scheduled f/u Teresa Nath PA-C Trauma Surgery/Surgical Critical Care/Emergency General Surgery Problem List/Past Medical History Ongoing Chronic health problem Historical No qualifying data Procedure/Surgical History Cholecystectomy (01/04/2025), Arthroscopy of knee, Reconstruction of nose. Medications Jardiance 25 mg oral tablet, 25 mg= 1 tab(s), Oral, qAM lisinopril 20 mg Tab, 20 mg= 1 tab(s), Oral, Daily metformin 1000 mg Tab, 1000 mg= 1 tab(s), Oral, BID omeprazole 20 mg Cap-DR, 20 mg= 1 cap(s), Oral, Daily rosuvastatin 10 mg Tab, 10 mg= 1 tab(s), Oral, Daily Toujeo SoloStar Prefilled Pen 300 units/mL subcutaneous solution, 50 unit(s), SubCutaneous, Daily Allergies No Known Allergies [facility] Comment on above: Result Comment: Elec tronically Signed By: Teresa Nath PA-C\.br\Date and Time Signed: 01/20/25 10:59 EDT\.br\Electronically Co-Signed By: Tj Juarez MD\.br\Date and Time Co-Signed: 01/20/25 11:53 EDT Coding Queryon 01-13-2025 Coding Query Coding Query From: Rina Rodriguez RN To: Mone Boudreaux PA-C; Sent: 01/07/2025 07:18:01 EDT Subject: Coding Query Due Date/Time: 01/08/2025 07:17:00 EDT Caller Name: PAT MICHAEL; Caller Number: H , M Documentation in the medical record indicates that this patient has been admitted with the following BMI: 40.48 While BMI may be coded from dietitian or nursing documentation, the weight-related diagnosis must be coded from physician documentation. BMI is usually calculated as weight (in kg) divided by height (in meters) squared, or kg/m2. Based on your medical judgment, can you further clarify the following? Respond with all that apply: [___]Morbid (severe) obesity due to excess calories (BMI 40 or greater) [___]BMI 40.0 - 44.9 [___]Other (please specify): In responding to this request, please exercise your independent professional judgement. The fact that a question is asked does not imply that any particular answer is desired or expected. Thank you! Rina [phone] From: Mone Boudreaux PA-C To: Rina Rodriguez RN; Sent: 01/13/2025 10:44:06 EDT Subject: RE: Coding Query Caller Name: PAT MICHAEL; Caller Number: Ger , M [__X_]BMI 40.0 - 44.9 From: Rina Rodriguez RN To: Mone Boudreaux PA-C; Sent: 01/13/2025 12:33:34 EDT ! Subject: FW: Coding Query Due Date/Time: 01/14/2025 12:33:00 EDT Caller Name: PAT MICHAEL; Caller Number: Ger , M Mark Shore thank you for your response showing the BMI. However, we also need the diagnosis based on the BMI. Can you please respond back with the diagnosis? From: Mone Boudreaux PA-C To: Rina Rodriguez RN; Sent: 01/13/2025 15:48:43 EDT Subject: RE: Coding Query Caller Name: PAT MICHAEL; Caller Number: Ger , M Class III obesity or severe obesity range Hope this helps! [facility] Coding Query Coding Query From: Shelly Lucas RN To: Mone Boudreaux PA-C; Sent: 01/12/2025 14:57:23 EDT ! Subject: Coding Query Due Date/Time: 01/13/2025 14:57:00 EDT Caller Name: PAT MICHAEL; Caller Number: Ger , M A pathology report was noted in the medical record. The pathology report indicated: Specimen(s) Received (Verified) Gallbladder Clinical Information (Verified) Cholecystitis Pre-Op Diagnosis: Cholecystitis Procedure: Laparoscopic cholecystectomy Post-Op Diagnosis: Gallstone pancreatitis Final Diagnosis (Verified) GALLBLADDER, CHOLECYSTECTOMY: - Chronic and mild acute cholecystitis with cholelithias Based on your medical judgment, can you please substantiate the diagnosis documented in the final pathology report by the pathologist? [___]Yes, I agree with the diagnosis documented by the pathologist. [___]No, I do not agree with the diagnosis documented by the pathologist. Reason: [___]Other: In responding to this request, please exercise your independent professional judgement. The fact that a question is asked does not imply that any particular answer is desired or expected. Thank you!shelly [phone] From: Mone Boudreaux PA-C To: Shelly Lucas RN; Sent: 01/13/2025 10:39:56 EDT Subject: RE: Coding Query Caller Name: PAT MICHAEL; Caller Number: Ger , M [X]Yes, I agree with the diagnosis documented by the pathologist. [facility] Outside Recordson 01-12-2025 Outside Records [id number] #[id number] [facility] Surgical Pathology Reporton 01-11-2025 Surgical Pathology Report [facility] [address] [address]- Surgical Pathology Report Collected Date/Time: 01/04/2025 13:20 EDT Pathologist: Britt Arthur MD Received Date/Time: 01/04/2025 19:29 EDT Kassandra MCGUIRE, Jim Cannon MD, Jim Marshall Surgical Pathology Report - 01/11/2025 12:10 EDT - Auth (Verified) Final Diagnosis GALLBLADDER, CHOLECYSTECTOMY: - Chronic and mild acute cholecystitis with cholelithiasis (Electronic Signature) Myrlande. Sandhya MD 01/11/2025 12:10 Clinical Information Cholecystitis Pre-Op Diagnosis: Cholecystitis Procedure: Laparoscopic cholecystectomy Post-Op Diagnosis: Gallstone pancreatitis Specimen(s) Received Gallbladder Gross Description Received in formalin labeled with patient name, number, and gallbladder is a leaking but intact gallbladder measuring 6.7 x 2.8 x 1.5 cm. The serosal surface is chao/light yellow, wrinkled, stained green, and has a dull shine. A surgical clip is removed from the cystic duct region. The gallbladder is opened and contains dark olive-green bile and approximately six to seven black facet-type friable gallstones measuring up to 0.4 cm in diameter. The wall of the gallbladder measures up to 0.5 cm in thickness. The mucosal surface is chao, velvety, and has a dark green stain. Specimen is submitted in two cassettes: 1 - Cystic duct region 2 - Information Technology Professor portion of remainder of gallbladder (DC) DC:MCA Microscopic Description Microscopic examination performed unless gross only specified. Quality was accessed and acceptable. This report was transcribed using voice recognition technology and might contain unintended computerized application development liaison errors. [facility] Comment on above: Performed By: #### [id number] #### [facility] [place] [address] Coding Queryon 01-07-2025 Coding Query Coding Query From: Rina Rodriguez RN To: Mone Boudreaux PA-C; Sent: 01/07/2025 07:18:01 EDT Subject: Coding Query Due Date/Time: 01/08/2025 07:17:00 EDT Caller Name: PAT MICHAEL; Caller Number: Ger , M Documentation in the medical record indicates that this patient has been admitted with the following BMI: 40.48 While BMI may be coded from dietitian or nursing documentation, the weight-related diagnosis must be coded from physician documentation. BMI is usually calculated as weight (in kg) divided by height (in meters) squared, or kg/m2. Based on your medical judgment, can you further clarify the following? Respond with all that apply: [___]Morbid (severe) obesity due to excess calories (BMI 40 or greater) [___]BMI 40.0 - 44.9 [___]Other (please specify): In responding to this request, please exercise your independent professional judgement. The fact that a question is asked does not imply that any particular answer is desired or expected. Thank you! Rina [phone] [facility] Outside Recordson 01-06-2025 Outside Records [id number]# 1.00OTGTIFF [facility] CBC w/ Auto Diffon 5 Basophil Absolute 0.0 E9/L Normal 0.0-0.2 [facility] Comment on above: Performed By: #### 2 [id number] #### [facility] [address] [place] [address] Basophils/100 WBC (Bld) 0.4 % Normal 0.0-2.0 [facility] Comment on above: Performed By: #### 2 [id number] #### [facility] [address] [place] [address] Eos Absolute 0.0 E9/L Normal 0.0-0.5 [facility] Comment on above: Performed By: #### 2 [id number] #### [facility] [address] [place] [address] Eosinophils/100 WBC (Bld) 0.1 % Normal 0.0-8.0 [facility] Comment on above: Performed By: #### 2 [id number] #### [facility] [address] [place] [address] Erythrocyte distribution width (RBC) [Ratio] 14.1 % Normal 10.9-14.2 [facility] Comment on above: Performed By: #### 2 [id number] #### [facility] [address] [place] [address] Hematocrit (Bld) [Volume fraction] 38.9 % Normal 37.7-49.0 [facility] Comment on above: Performed By: #### 2 [id number] #### [facility] [address] [place] [address] Hemoglobin (Bld) [Mass/Vol] 13.4 g/dL Low 13.5-17.5 [facility] Comment on above: Performed By: #### 2 [id number] #### [facility] [address] [place] [address] Lymph Absolute 1.0 E9/L Normal 1.0-4.0 [facility] Comment on above: Performed By: #### 2 [id number] #### [facility] [address] [place] [address] Lymphocytes/100 WBC (Bld) 9.0 % Low 14.0-50.0 [facility] Comment on above: Performed By: #### 2 [id number] #### [facility] [address] [place] [address] MCH (RBC) [Entitic mass] 32.7 pg Normal 27.0-34.0 [facility] Comment on above: Performed By: #### 2 [id number] #### [facility] [address] [place] [address] MCHC (RBC) [Mass/Vol] 34.4 g/dL Normal 31.4-36.0 [facility] Comment on above: Performed By: #### 2 [id number] #### [facility] [address] [place] [address] MCV (RBC) [Entitic vol] 95.2 fL Normal 80.0-100.0 [facility] Comment on above: Performed By: #### 2 [id number] #### [facility] [address] [place] [address] [place] Absolute 0.8 E9/L Normal 0.2-1.0 [facility] Comment on above: Performed By: #### 2 [id number] #### [facility] [address] [place] [address] Monocytes/100 WBC (Bld) 7.6 % Normal 4.0-14.0 [facility] Comment on above: Performed By: #### 2 [id number] #### [facility] [address] [place] [address] Neutro Absolute 9.1 E9/L High 2.0-7.5 [facility] Comment on above: Performed By: #### 2 [id number] #### [facility] [address] [place] [address] Neutro Auto 82.9 % High 36.0-75.0 [facility] Comment on above: Performed By: #### 2 [id number] #### [facility] [address] [place] [address] Platelet 240.0 E9/L Normal 150.0-500.0 [facility] Comment on above: Performed By: #### 2 [id number] #### [facility] [address] [place] [address] Platelet mean volume (Bld) [Entitic vol] 8.0 fL Normal 6.4-10.8 [facility] Comment on above: Performed By: #### 2 [id number] #### [facility] [address] [place] [address] RBC 4.1 E12/L Low 4.3-5.9 [facility] Comment on above: Performed By: #### 2 [id number] #### [facility] [address] [place] [address] WBC 11.0 E9/L Normal 4.0-11.0 [facility] Comment on above: Performed By: #### 2 [id number] #### [facility] [address] [place] [address] Capillary Glucose POCon 12-16 Glucose [Mass/Vol] 192 mg/dL High 55-99 [facility] Comment on above: Result Comment: Michael robles RN/ Performed By: #### 2 [id number] #### [facility] [address] [place] [address] Glucose [Mass/Vol] 249 mg/dL High 55-99 [facility] Comment on above: Result Comment: Michael robles RN/ Performed By: #### 2 [id number] #### [facility] [address] [place] [address] Discharge Note-Nursingon Discharge Note-Nursing Discharge Note-Nursing PAT MICHAEL :1985 Visit Date:01/03/2025 Inpatient Discharge Instructions Your Care Team Admitting Physician - Nely MCGUIRE, Sujit Massey Consulting Physician - Christiano MCGUIRE, Nelson Becker Reason for Your Visit Abd pain/ chst pain/back pain Your Diagnosis Gallstone pancreatitis Chronic health problem No Chronic Problems This Is Your Medications List acetaminophen (acetaminophen 325 mg Tab) empagliflozin (Jardiance 25 mg oral tablet) ibuprofen (ibuprofen 800 mg Tab) insulin glargine (Toujeo SoloStar Prefilled Pen 300 units/mL subcutaneous solution) lisinopril (lisinopril 20 mg Tab) metformin (metformin 1000 mg Tab) omeprazole (omeprazole 20 mg Cap-DR) oxycodone (oxyCODONE 5 mg Cap) rosuvastatin (rosuvastatin 10 mg Tab) Procedure History Cholecystectomy (01/04/2025), Arthroscopy of knee, Reconstruction of nose. Discharge Vitals Temperature (Oral) 36.9 ???C Heart Rate (Monitored) 92 Respiratory Rate 16 Blood Pressure 130/82 Weight 143.6 kg What to do next Instructions From Your Doctor Event Name Event Result Discharge Activity Expect mild pain Discharge Diet(s) Regular Call Your Doctor For Temperature above 101.5 degrees, Redness, swelling, or pus at operative site, Severe pain at the operative site Pending Diagnostic Test Results Biopsy/pathology Discharge Instructions Do not lift more than 15lbs for 6 weeks. New Follow Up Appointments after Discharge Follow Up with Trauma Clinic When: Comments: Someone will call you on 01/20 between 12-2pm for a postop check. Where: [address] [place] [address] [address], [address] [place] [phone] Follow Up with RITA NUGENT When: Within 7 to 10 days, only if needed Comments: Call for followup appointment Where: [address] [place] [address]- Business (1) Medications What How Much When Instructions Next Dose New acetaminophen (acetaminophen 325 mg Tab) 2 Tablets By Mouth Every 6 hours Duration: 14 Days Pickup at [facility]/pharmacy #[id number] 01/05/25 at 4pm New ibuprofen (ibuprofen 800 mg Tab) 1 Tablets By Mouth Every 6 hours Duration: 14 Days Pickup at [facility]/pharmacy #[id number] as directed New oxycodone (oxyCODONE 5 mg Cap) 1 Capsules By Mouth Every 6 hours as needed for for pain Duration: 3 Days Pickup at [facility]/pharmacy #[id number] as directed Unchanged empagliflozin (Jardiance 25 mg oral tablet) 1 Tablets By Mouth Once a day (in the morning) as directed Unchanged insulin glargine (Toujeo SoloStar Prefilled Pen 300 units/ mL subcutaneous solution) 50 Units Subcutaneous Every day as directed Unchanged lisinopril (lisinopril 20 mg Tab) 1 Tablets By Mouth Every day as directed Unchanged metformin (metformin 1000 mg Tab) 1 Tablets By Mouth 2 times a day as directed Unchanged omeprazole (omeprazole 20 mg Cap-DR) 1 Capsules By Mouth Every day as directed Unchanged rosuvastatin (rosuvastatin 10 mg Tab) 1 Tablets By Mouth Every day as directed Pharmacy Information [facility]/pharmacy #[id number]: [address], [place] [id number] [phone] Test Results CBC BMP WBC: 11 E9/L (01/05/25 05:13:00) Glucose Lvl: 211 mg/dL High (01/05/25 05:13:00) RBC: 4.1 E12/L Low (01/05/25 05:13:00) BUN: 20 mg/dL (01/05/25 05:13:00) HGB: 13.4 gm/dL Low (01/05/25 05:13:00) Creatinine: 0.8 mg/dL (01/05/25 05:13:00) Hct: 38.9 % (01/05/25 05:13:00) BUN/Creat Ratio: 25 High (01/05/25 05:13:00) MCV: 95.2 fL (01/05/25 05:13:00) Sodium Lvl: 133 mmol/L Low (01/05/25 05:13:00) MCH: 32.7 pg (01/05/25 05:13:00) Potassium Lvl: 4.6 mmol/L (01/05/25 05:13:00) MCHC: 34.4 gm/dL (01/05/25 05:13:00) Chloride: 104 mmol/L (01/05/25 05:13:00) RDW: 14.1 % (01/05/25 05:13:00) CO2: 17 mmol/L Low (01/05/25 05:13:00) Platelet: 240 E9/L (01/05/25 05:13:00) AGAP: 15 mEq/L (01/05/25 05:13:00) MPV: 8 fL (01/05/25 05:13:00) Calcium Lvl: 9.4 mg/dL (01/05/25 05:13:00) Allergies No Known Allergies Problems Ongoing - Any problem that you are currently receiving treatment for. Chronic health problem Education Materials Minimally Invasive Cholecystectomy, Care After The following information offers guidance on how to care for yourself after your procedure. Your health care provider may also give you more specific instructions. If you have problems or questions, contact your health care provider. What can I expect after the procedure? After the procedure, it is common to have: ??? Pain at your incision sites. You will be given medicines to control this pain. ??? Mild nausea or vomiting. ??? Bloating and possible shoulder pain from the gas that was used during the procedure. Follow these instructions at home: Medicines ??? Take [id number] and prescription medicines only as told by your health care provider. ??? If you were prescribed an antibiotic medicine, take it as told by your health care provider. Do not stop using the a (more content not included)... [facility] Inpatient Clinical Summaryon 01-05-2025 Inpatient Clinical Summary Inpatient Clinical Summary [address] [address] Clinical Summary Person Information: Name: PAT MICHAEL Age: 39 Years : 1985 Sex: Male PCP: RITA NUGENT DO Marital Status: Race: White Ethnicity: Non- or Language: Maltese Visit Id: Visit Reason: GALLSTONE, PANCREATITIS Speciality: Acuity: Enc Type: Inpatient Med Service: Surgery Arrival: 01/03/2025 19:15:28 Discharge: Dispo Type: Address: [facility] [address] [facility] [id number] Provider Notes: Diagnosis: Chronic health problem; No Chronic Problems Problems Active Chronic health problem Smoking Status: Former Smoker Functional Status: Sensory Deficits: History of Falls: Mobility Assistance Prior to Admission: Independent ADLs: Independent Current Level of Assistance for Self-Care/Mobility: Cognitive Status: Oriented x 3 Allergies No Known Allergies Measurements: Height: 190.50 cm Weight: 143.6 kg Blood Pressure: 130 mmHg / 82 mmHg BMI: 40.48 kg/m2 Procedures Arthroscopy of knee Reconstruction of nose Cholecystectomy (01/04/2025) Immunizations No Immunizations Documented This Visit Final Med List: acetaminophen (acetaminophen 325 mg Tab) 2 Tablets By Mouth every 6 hours for 14 Days. Refills: 0. empagliflozin (Jardiance 25 mg oral tablet) 1 Tablets By Mouth once a day (in the morning). ibuprofen (ibuprofen 800 mg Tab) 1 Tablets By Mouth every 6 hours for 14 Days. Refills: 0. insulin glargine (Toujeo SoloStar Prefilled Pen 300 units/mL subcutaneous solution) 50 Units Subcutaneous every day. lisinopril (lisinopril 20 mg Tab) 1 Tablets By Mouth every day. metformin (metformin 1000 mg Tab) 1 Tablets By Mouth 2 times a day. omeprazole (omeprazole 20 mg Cap-DR) 1 Capsules By Mouth every day. oxycodone (oxyCODONE 5 mg Cap) 1 Capsules By Mouth every 6 hours as needed for pain for 3 Days. Refills: 0. rosuvastatin (rosuvastatin 10 mg Tab) 1 Tablets By Mouth every day. Care Team Members: Attending Physician: Nely MCGUIRE, Sujit Massey Consulting Physician: Nelson Alvarado MD Referring Physician: Follow up: With: Address: When: [facility] [address] [facility] [address], 2nd Floor, [address] [place] [phone] Comments: Someone will call you on 01/20 between 12-2pm for a postop check. With: Address: When: RITA NUGENT [address] [place] [address] Business (1) Within 7 to 10 days, only if needed Comments: Call for followup appointment Patient Education Information: Minimally Invasive Cholecystectomy, Care After Normal [facility] Inpatient Patient Summaryon 01-05-2025 Inpatient Patient Summary Inpatient Patient Summary [address] [address] Patient Discharge Instructions PERSON INFORMATION Name: PAT MICHAEL Date of : 1985 Current Date: 01/05/2025 11:23:57 PHYSICIANS Admitting Physician: Sujit Mckay MD Primary Care Physician: RITA NUGENT DO PCP Comment: Discharge Diagnosis: Chronic health problem; No Chronic Problems Condition at Discharge: Improved PAT MICHAEL has been given the following list of follow-up instructions, prescriptions, and patient education materials: PATIENT FOLLOW-UP INFORMATION Diet: Regular Discharge Activity: Expect mild pain Discharge Restrictions: Wound Care Instructions: Remove Your Dressing In Days Call Your Doctor For: Temperature above 101.5 degrees, Redness, swelling, or pus at operative site, Severe pain at the operative site IF UNABLE TO CONTACT YOUR PHYSICIAN AND YOU FEEL IT IS AN EMERGENCY, GO TO THE NEAREST EMERGENCY ROOM OR CALL 911 Home Treatment: Devices/Equipment: None Special Services: Additional Instructions: Do not lift more than 15lbs for 6 weeks. Primary Care Physician to provide the following pending test results: Biopsy/pathology Follow up: With: Address: When: [facility] [address] [facility] 3, 2nd Floor, [address] [place] [phone] Comments: Someone will call you on 01/20 between 12-2pm for a postop check. With: Address: When: RITAKRIS NUGENT [address] [place] [address] Business (1) Within 7 to 10 days, only if needed Comments: Call for followup appointment In the event that this physician does not participate in your insurance network, please consult with your insurance company to find a nearby participating provider. Comment: FERNANDA Tirado CECIL, have received the attached patient education materials/instruction s and have verbalized understanding: Patient Signature Date Clinican/Nurse Signature Date HERE ARE THE MEDICATION CHANGES THAT OCCURRED DURING YOUR HOSPITAL STAY New Medications [id number], [address], [place] [phone], [phone] acetaminophen (acetaminophen 325 mg Tab) 2 Tablets By Mouth every 6 hours for 14 Days. Refills: 0. Last Dose: ____Next Dose: ____ ibuprofen (ibuprofen 800 mg Tab) 1 Tablets By Mouth every 6 hours for 14 Days. Refills: 0. Last Dose: ____Next Dose: ____ oxycodone (oxyCODONE 5 mg Cap) 1 Capsules By Mouth every 6 hours as needed for pain for 3 Days. Refills: 0. Last Dose: ____Next Dose: ____ Medications to Continue with No Changes Other Medications empagliflozin (Jardiance 25 mg oral tablet) 1 Tablets By Mouth once a day (in the morning). Last Dose: ____Next Dose: ____ insulin glargine (Toujeo SoloStar Prefilled Pen 300 units/mL subcutaneous solution) 50 Units Subcutaneous every day. Last Dose: ____Next Dose: ____ lisinopril (lisinopril 20 mg Tab) 1 Tablets By Mouth every day. Last Dose: ____Next Dose: ____ metformin (metformin 1000 mg Tab) 1 Tablets By Mouth 2 times a day. Last Dose: ____Next Dose: ____ omeprazole (omeprazole 20 mg Cap-DR) 1 Capsules By Mouth every day. Last Dose: ____Next Dose: ____ rosuvastatin (rosuvastatin 10 mg Tab) 1 Tablets By Mouth every day. Last Dose: ____Next Dose: ____ Comment: MEDICATION LIST PROVIDED FOR YOU IS A LIST OF YOUR CURRENT MEDICATIONS. PLEASE CARRY THIS WITH YOU AT ALL TIMES. acetaminophen (acetaminophen 325 mg Tab) 2 Tablets By Mouth every 6 hours for 14 Days. Refills: 0. empagliflozin (Jardiance 25 mg oral tablet) 1 Tablets By Mouth once a day (in the morning). ibuprofen (ibuprofen 800 mg Tab) 1 Tablets By Mouth every 6 hours for 14 Days. Refills: 0. insulin glargine (Toujeo SoloStar Prefilled Pen 300 units/mL subcutaneous solution) 50 Units Subcutaneous every day. lisinopril (lisinopril 20 mg Tab) 1 Tablets By Mouth every day. metformin (metformin 1000 mg Tab) 1 Tablets By Mouth 2 times a day. omeprazole (omeprazole 20 mg Cap-DR) 1 Capsules By Mouth every day. oxycodone (oxyCODONE 5 mg Cap) 1 Capsules By Mouth every 6 hours as needed for pain for 3 Days. Refills: 0. rosuvastatin (rosuvastatin 10 mg Tab) 1 Tablets By Mouth every day. Pharmacy Information: Comment: PATIENT EDUCATION INFORMATION Instructions: Minimally Invasive Cholecystectomy, Care After The following information offers guidance on how to care for yourself after your procedure. Your health care provider may also give you more specific instructio (more content not included)... [facility] Interdisciplinary Note - [place] Manageron 01-05-2025 Interdisciplinary Note - Mailing Manager Interdisciplinary Note - Mailing Manager CRM to room 318 Patient is awake, alert and oriented. Patient is from home alone, he drove himself. Patient has verified his PCP, no DME and insurance. Patient PLOF is independent in self care. Patient is an inpatient. He came in with gallstone pancreatitis. Patient on 01/04 has Lap Jeaneth. Patient is assigned to Trauma, see notes. Per patient he has not has a BM. Patient declined any needs for DME, HH or Paramed. Patient feels safe to return home at MD. Patient was provided CRM contact, white board updated, CRM following DC date TBD Plan for BM today, giving meds and possible DC today [facility] Comment on above: Result Comment: Elec tronically Signed By: Jailene Gray\.abdirizak\Date and Time Signed: 01/05/25 11:19 EDT Main OR Intraoperative Recor don 01-05-2025 Main OR Intraoperative Record Main OR Intraoperative Record IntraOp Document Type FT Summary Primary Physician: Kassandra MCGUIRE, Jim Sheffield Finalized Date/Time: 01/05/25 10:19:57 Pt. Name: PAT MICHAEL Chris/Sex: 1985 Male Med Rec #: [id number] Physician: Nely MCGUIRE, Sujit Massey Financial #: [id number] Pt. Type: I Room/Bed: 18/ Admit/Disch: 01/03/25 19:15:28 - Institution: Case Times FT Entry 1 Patient Times In Room 01/04/25 12:36:00 Out Room 01/04/25 14:54:00 Procedure Times Start 01/04/25 12:58:00 Stop 01/04/25 14:42:00 Anesthesia Times Start 01/04/25 12:36:00 Stop 01/04/25 14:54:00 Last Modified By: Julia Horne Ii 01/04/25 14:54:02 Case Attendance FT Entry 1 Entry 2 Entry 3 Case Attendee Kaden YODER, Dale Cannon MD, Jim Kennedy CST, Lizeth Silveira Role Performed IRON MELTER Surgeon - Primary Scrub - Primary Time In 01/04/25 12:36:00 01/04/25 12:50:00 01/04/25 12:36:00 Time Out 01/04/25 13:51:00 01/04/25 14:33:00 01/04/25 14:54:00 Procedure CHOLECYSTECTOMY CHOLECYSTECTOMY CHOLECYSTECTOMY LAPAROSCOPIC W/ CHOLANGI LAPAROSCOPIC W/ CHOLANGI LAPAROSCOPIC W/ CHOLANGI Comments DR. BAIRES CHIP TUNER Last Modified By: Julia Horne Ii, Alfons Ii F Letrondo, Alfons Ii F 01/04/25 14:54:03 01/04/25 14:54:03 01/04/25 14:54:03 Entry 4 Entry 5 Entry 6 Case Attendee Julia Horne Ii, PA-C, Wilhelm CST, Tiago Packer Role Performed Mandrel Maker - Primary PA/BINDERY MANAGER Staff - Other Time In 01/04/25 12:36:00 01/04/25 12:40:00 01/04/25 12:36:00 Time Out 01/04/25 14:54:00 01/04/25 14:54:00 01/04/25 12:58:00 Procedure CHOLECYSTECTOMY CHOLECYSTECTOMY CHOLECYSTECTOMY LAPAROSCOPIC W/ CHOLANGI LAPAROSCOPIC W/ CHOLANGI LAPAROSCOPIC W/ CHOLANGI Comments position help Last Modified By: Julia Horne Ii, Alfons Ii F Letrondo, Alfons Ii F 01/04/25 14:54:03 01/04/25 14:54:03 01/04/25 14:54:03 Entry 7 Entry 8 Case Attendee Jose Bairse Jr, DO, CRNA, Paul A. Role Performed Anesthesiologist of BEBA Record Time In 01/04/25 13:51:00 01/04/25 14:11:00 Time Out 01/04/25 14:11:00 01/04/25 14:54:00 Procedure CHOLECYSTECTOMY CHOLECYSTECTOMY LAPAROSCOPIC W/ CHOLANGI LAPAROSCOPIC W/ CHOLANGI Comments anesthesia relief Last Modified By: Julia Horne Ii, Alfons Ii F 01/04/25 14:54:03 01/04/25 14:54:03 Perioperative Protocols FT Pre-Care Text: Implements protective measures prior to operative or invasive procedure, confirms identity before the operative or invasive procedure, verifies operative procedure, surgical site, and laterality Entry 1 Procedure(s) CHOLECYSTECTOMY Patient Identity Birthday, Blood Band, LAPAROSCOPIC W/ CHOLANGI Verified (select at ID Band Check, Patient least 2): Participation Consents / H and P Anesthesia Consent, Operative Site N/A Verified H&P, Surgery/Procedure Marking Verified Consent, Transfusion Consent Surgical Site Yes Laterality Verified n/a Verified Procedure Verified Yes Correct Patient Yes Position Verified Availability Equipment, Medication Prep Dry Yes Verified (If Applicable) PreOp Antibiotic Yes Time Out Dale Alfonso CRNA, Given Participants Kassandra MCGUIRE, Brent Wan CST, Coleen Avelar Alfons Ii F, Richardson PA-C, Palmer Fishman CST, Benjamin Time Out Complete 01/04/25 12:55:00 Outcomes Met? Yes Last Modified By: Julia Horne Ii 01/04/25 13:01:56 Post-Care Text: The patient is free from signs and symptoms of injury caused by extraneous objects Allergy Information FT Pre-Care Text: Verifies allergies Entry 1 Allergies Reviewed? Yes Allergies Reviewed Self/Patient With Outcomes Met? Yes Last Modified By: Julia Horne Ii 01/04/25 13:02:23 Post-Care Text: The patient received appropriate medication(s) safely administered during the perioperative period Surgical Procedures FT Entry 1 Procedure Description Procedure CHOLECYSTECTOMY Surgeon Description LAPAROSCOPIC LAPAROSCOPIC W/ CHOLECYSTECTOMY, CHOLANGIOGRAM BILATERAL TAP BLOCK Primary Procedure Yes Primary Surgeon Kassandra MCGUIRE, Jim Sheffield Start 01/04/25 12:58:00 Stop 01/04/25 14:42:00 Anesthesia Type General Surgical Service General Wound Class 2 - Clean-Contaminated Last Modified By: Julia Horne Ii 01/04/25 14:42:08 General Case Data FT Pre-Care Text: Classifies surgical wound, implements aseptic technique, initiates traffic control Entry 1 Case Information OR OR 2 FT Case Level Level 3 Wound Class 2 - Clean-Contaminated Specialty General ASA Class 3 Preop Diagnosis CHOLECYSTITIS Postop Same As Preop Yes Postop Diagnosis CHOLECYSTITIS Outcomes Met? Yes Last Modified By: Julia Horne Ii 01/04/25 14:58:47 Post-Care Text: The patient is free from signs and symptoms of infection Skin Assessment (Pre Procedure) FT Pre-Care Text: Implements protective measures to prevent skin/ tissue injury due to the (more content not included)... [facility] Outside Recordson 01-05-2025 Outside Records [id number][facility] - Other [facility] Report on 01-05-2025 Rad - Other Radiology Report [id number]# [facility] - Other Radiology Report [id number]# [facility] eGFRon 01-05-2025 eGFR 114 mL/min/1.73 m2 Normal >=59 [facility] Comment on above: Performed By: #### 1 [id number] #### [facility] [address] [place] [address] ABO/Rh History Checkon 01-04 ABO/Rh History Check Type verified by second s Normal [facility] Comment on above: Performed By: #### 1 [id number] #### [facility] [address] [place] [address] ABO/Rh Retypeon 01-04-2025 ABO/Rh Retype Interp Positive Invalid Interpretation Code [facility] Comment on above: Performed By: #### 1 [id number] #### [facility] [address] [place] [address] Amylaseon 01-04-2025 Amylase [Catalytic activity/Vol] 53 U/L Normal 25-157 [facility] Comment on above: Performed By: #### 2 [id number] #### [facility] [address] [place] [address] BMPon 01-04-2025 Anion gap [Moles/Vol] 15 mmol/L Normal 6-16 [facility] Comment on above: Performed By: #### 2 [id number] #### [facility] [address] [place] [address] BUN/Creat Ratio 36 No Units High 10-20 [place] Comment on above: Performed By: #### 2 188581 #### [facility] [address] [place] [address] Calcium [Mass/Vol] 9.3 mg/dL Normal 8.9-11.1 [facility] Comment on above: Performed By: #### 2 [id number] #### [facility] [address] [place] [address] Chloride [Moles/Vol] 102 mmol/L Normal 101-111 [facility] Comment on above: Performed By: #### 2 [id number] #### [facility] [address] [place] [address] CO2 [Moles/Vol] 22 mmol/L Normal 21-31 [facility] Comment on above: Performed By: #### 2 [id number] #### [facility] [address] [place] [address] Creatinine [Mass/Vol] 0.5 mg/dL Normal 0.5-1.3 [facility] Comment on above: Performed By: #### 2 [id number] #### [facility] [address] [place] [address] Glucose [Mass/Vol] 81 mg/dL Normal 55-199 [facility] Comment on above: Performed By: #### 2 161754 #### [facility] [address] [place] [address] Potassium [Moles/Vol] 4.0 mmol/L Normal 3.5-5.3 [facility] Comment on above: Performed By: #### 2 499325 #### [facility] [address] [place] [address] Sodium [Moles/Vol] 135 mmol/L Normal 135-145 [facility] Comment on above: Performed By: #### 2 [id number] #### [facility] [address] [place] [address] Urea nitrogen [Mass/Vol] 18 mg/dL Normal 5-21 [facility] Comment on above: Performed By: #### 2 092856 #### [facility] [address] [place] [address] CBC w/ Auto Diffon 5 Basophil Absolute 0.0 E9/L Normal 0.0-0.2 [facility] Comment on above: Performed By: #### 2 798189 #### [facility] [address] [place] [address] Basophils/100 WBC (Bld) 0.1 % Normal 0.0-2.0 [facility] Comment on above: Performed By: #### 2 159957 #### [facility] [address] [place] [address] Eos Absolute 0.0 E9/L Normal 0.0-0.5 [facility] Comment on above: Performed By: #### 2 696965 #### [facility] [address] [place] [address] Eosinophils/100 WBC (Bld) 0.3 % Normal 0.0-8.0 [facility] Comment on above: Performed By: #### 2 455323 #### [facility] [address] [place] [address] Erythrocyte distribution width (RBC) [Ratio] 13.9 % Normal 10.9-14.2 [facility] Comment on above: Performed By: #### 2 205591 #### [facility] [address] [place] [address] Hematocrit (Bld) [Volume fraction] 39.2 % Normal 37.7-49.0 [facility] Comment on above: Performed By: #### 2 013243 #### [facility] [address] [place] [address] Hemoglobin (Bld) [Mass/Vol] 13.3 g/dL Low 13.5-17.5 [facility] Comment on above: Performed By: #### 2 564560 #### [facility] [address] [place] [address] Lymph Absolute 1.5 E9/L Normal 1.0-4.0 [facility] Comment on above: Performed By: #### 2 453501 #### [facility] [address] [place] [address] Lymphocytes/100 WBC (Bld) 14.6 % Normal 14.0-50.0 [facility] Comment on above: Performed By: #### 2 884680 #### [facility] [address] [place] [address] MCH (RBC) [Entitic mass] 31.8 pg Normal 27.0-34.0 [facility] Comment on above: Performed By: #### 2 248238 #### [facility] [address] [place] [address] MCHC (RBC) [Mass/Vol] 34.0 g/dL Normal 31.4-36.0 [facility] Comment on above: Performed By: #### 2 743300 #### [facility] [address] [place] [address] MCV (RBC) [Entitic vol] 93.6 fL Normal 80.0-100.0 [facility] Comment on above: Performed By: #### 2 755190 #### [facility] [address] [place] [address] [place] Absolute 0.9 E9/L Normal 0.2-1.0 [facility] Comment on above: Performed By: #### 2 759482 #### [facility] [address] [place] [address] Monocytes/100 WBC (Bld) 8.3 % Normal 4.0-14.0 [facility] Comment on above: Performed By: #### 2 735194 #### [facility] [address] [place] [address] Neutro Absolute 8.0 E9/L High 2.0-7.5 [facility] Comment on above: Performed By: #### 2 733066 #### [facility] [address] [place] [address] Neutro Auto 76.7 % High 36.0-75.0 [facility] Comment on above: Performed By: #### 2 927403 #### [facility] [address] [place] [address] Platelet 203.0 E9/L Normal 150.0-500.0 [facility] Comment on above: Performed By: #### 2 466696 #### [facility] [address] [place] [address] Platelet mean volume (Bld) [Entitic vol] 8.7 fL Normal 6.4-10.8 [facility] Comment on above: Performed By: #### 2 946203 #### [facility] [address] [place] [address] RBC 4.2 E12/L Low 4.3-5.9 [facility] Comment on above: Performed By: #### 2 252552 #### [facility] [address] [place] [address] WBC 10.4 E9/L Normal 4.0-11.0 [facility] Comment on above: Performed By: #### 2 965976 #### [facility] [address] [place] [address] Capillary Glucose POCon 12-16 Glucose [Mass/Vol] 143 mg/dL High 55-99 [facility] Comment on above: Result Comment: Michael robles RN/ Performed By: #### 2 [id number] #### [facility] [address] [place] [address] Glucose [Mass/Vol] 89 mg/dL Normal 55-99 [facility] Comment on above: Result Comment: Michael robles RN/ Performed By: #### 2 [id number] #### [facility] [address] [place] [address] Hep Func Panelon 01-04-2025 Albumin [Mass/Vol] 3.8 g/dL Normal 3.3-5.0 [facility] Comment on above: Performed By: #### 2 724214 #### [facility] [address] [place] [address] Albumin/Globulin [Mass ratio] 1.2 {ratio} Normal 1.1-2.2 [facility] Comment on above: Performed By: #### 2 [id number] #### [facility] [address] [place] [address] Alk Phos 76 Int._Unit/L Normal 21-98 [facility] Comment on above: Performed By: #### 2 049403 #### [facility] [address] [place] [address] ALT 15 Int._Unit/L Normal 6-46 [facility] Comment on above: Performed By: #### 2 914365 #### [facility] [address] [place] [address] AST 11 Int._Unit/L Normal 5-43 [facility] Comment on above: Performed By: #### 2 687829 #### [facility] [address] [place] [address] Bili Direct 0.1 mg/dL Normal 0.0-0.4 [facility] Comment on above: Performed By: #### 2 895871 #### [facility] [address] [place] [address] Bili Indirect 0.7 mg/dL Normal 0.1-0.9 [facility] Comment on above: Performed By: #### 2 974831 #### [facility] [address] [place] [address] Bili Total 0.8 mg/dL Normal 0.0-1.1 [facility] Comment on above: Performed By: #### 2 756152 #### [facility] [address] [place] [address] Globulin (S) [Mass/Vol] 3.2 g/dL Normal 1.4-4.0 [facility] Comment on above: Performed By: #### 2 634387 #### [facility] [address] [place] [address] Protein [Mass/Vol] 7.0 g/dL Normal 6.0-7.8 [facility] Comment on above: Performed By: #### 2 216703 #### [facility] [address] [place] [address] Inpatient Clinical Summaryon 01-04-2025 Inpatient Clinical Summary Inpatient Clinical Summary [address] [address] Clinical Summary Person Information: Name: PAT MICHAEL Age: 39 Years : 1985 Sex: Male PCP: RITA NUGENT DO Marital Status: Race: White Ethnicity: Non- or Language: Maltese Visit Id: Visit Reason: GALLSTONE, PANCREATITIS Speciality: Acuity: Enc Type: Inpatient Med Service: Surgery Arrival: 01/03/2025 19:15:28 Discharge: Dispo Type: Address: [facility] [place] [phone] Provider Notes: Diagnosis: Problems No Problems Documented Smoking Status: Former Smoker Functional Status: Sensory Deficits: History of Falls: Mobility Assistance Prior to Admission: Independent ADLs: Independent Current Level of Assistance for Self-Care/Mobility: Cognitive Status: Oriented x 3 Allergies No Known Allergies Measurements: Height: 190.50 cm Weight: 146.9 kg Blood Pressure: 118 mmHg / 70 mmHg BMI: 40.48 kg/m2 Procedures Reconstruction of nose Arthroscopy of knee Immunizations No Immunizations Documented This Visit Final Med List: empagliflozin (Jardiance 25 mg oral tablet) 1 Tablets By Mouth once a day (in the morning). insulin glargine (Toujeo SoloStar Prefilled Pen 300 units/mL subcutaneous solution) 50 Units Subcutaneous every day. lisinopril (lisinopril 20 mg Tab) 1 Tablets By Mouth every day. metformin (metformin 1000 mg Tab) 1 Tablets By Mouth 2 times a day. omeprazole (omeprazole 20 mg Cap-DR) 1 Capsules By Mouth every day. rosuvastatin (rosuvastatin 10 mg Tab) 1 Tablets By Mouth every day. Care Team Members: Attending Physician: Sujit Mckay MD Consulting Physician: Nelson Alvarado MD Referring Physician: Follow up: With: Address: When: RITA NUGENT [address] [place] [address] Business (1) Within 7 to 10 days, only if needed Comments: Call for followup appointment Patient Education Information: Normal [facility] Inpatient Patient Summaryon 01-04-2025 Inpatient Patient Summary Inpatient Patient Summary [address] [address] Patient Discharge Instructions PERSON INFORMATION Name: PAT MICHAEL Date of : 1985 Current Date: 01/04/2025 08:33:50 PHYSICIANS Admitting Physician: Sujit Mckay MD Primary Care Physician: RITA NUGENT DO PCP Comment: Discharge Diagnosis: Condition at Discharge: PAT MICHAEL has been given the following list of follow-up instructions, prescriptions, and patient education materials: PATIENT FOLLOW-UP INFORMATION Diet: Discharge Activity: Discharge Restrictions: Wound Care Instructions: Remove Your Dressing In Days Call Your Doctor For: IF UNABLE TO CONTACT YOUR PHYSICIAN AND YOU FEEL IT IS AN EMERGENCY, GO TO THE NEAREST EMERGENCY ROOM OR CALL 911 Home Treatment: Devices/Equipment: None Special Services: Additional Instructions: Primary Care Physician to provide the following pending test results: Follow up: With: Address: When: RITA NUGENT [address] [place] [address] Business (1) Within 7 to 10 days, only if needed Comments: Call for followup appointment In the event that this physician does not participate in your insurance network, please consult with your insurance company to find a nearby participating provider. Comment: FERNANDA iTrado CECIL, have received the attached patient education materials/instruction s and have verbalized understanding: Patient Signature Date Clinican/Nurse Signature Date HERE ARE THE MEDICATION CHANGES THAT OCCURRED DURING YOUR HOSPITAL STAY Medications to Continue with No Changes Other Medications empagliflozin (Jardiance 25 mg oral tablet) 1 Tablets By Mouth once a day (in the morning). Last Dose: ____Next Dose: ____ insulin glargine (Toujeo SoloStar Prefilled Pen 300 units/mL subcutaneous solution) 50 Units Subcutaneous every day. Last Dose: ____Next Dose: ____ lisinopril (lisinopril 20 mg Tab) 1 Tablets By Mouth every day. Last Dose: ____Next Dose: ____ metformin (metformin 1000 mg Tab) 1 Tablets By Mouth 2 times a day. Last Dose: ____Next Dose: ____ omeprazole (omeprazole 20 mg Cap-DR) 1 Capsules By Mouth every day. Last Dose: ____Next Dose: ____ rosuvastatin (rosuvastatin 10 mg Tab) 1 Tablets By Mouth every day. Last Dose: ____Next Dose: ____ Comment: MEDICATION LIST PROVIDED FOR YOU IS A LIST OF YOUR CURRENT MEDICATIONS. PLEASE CARRY THIS WITH YOU AT ALL TIMES. empagliflozin (Jardiance 25 mg oral tablet) 1 Tablets By Mouth once a day (in the morning). insulin glargine (Toujeo SoloStar Prefilled Pen 300 units/mL subcutaneous solution) 50 Units Subcutaneous every day. lisinopril (lisinopril 20 mg Tab) 1 Tablets By Mouth every day. metformin (metformin 1000 mg Tab) 1 Tablets By Mouth 2 times a day. omeprazole (omeprazole 20 mg Cap-DR) 1 Capsules By Mouth every day. rosuvastatin (rosuvastatin 10 mg Tab) 1 Tablets By Mouth every day. Pharmacy Information: Comment: PATIENT EDUCATION INFORMATION Instructions: Medication Leaflets: You may receive a survey from Elana Vásquez asking you to rate your care experience. Your feedback is important and will help us understand what we do well and how we can improve the quality of care we provide to you, your loved ones and our community. It???s an honor to serve you. Thank you for choosing [facility] Interdisciplinary Note - Kendall e Manageron 01-04-2025 Interdisciplinary Note - Mailing Manager Interdisciplinary Note - Mailing Manager Patient alert and oriented. No family at bedside. Patient able to participate in dc planning. Trauma is following patient, see notes. Patient reports trauma has not been in today but he is pretty sure they want to do surgery. Patient lives at home alone, independent with all needs. Will drive self home. PCP, DME and insurance information confirmed. Denies any dc needs. WHite board updated. [facility] Comment on above: Result Comment: Elec tronically Signed By: Judy Jara\.br\Date and Time Signed: 01/04/25 09:14 EDT Lipase Levelon 01-04-2025 Lipase Lvl 69 unit/L High 13-58 [facility] Comment on above: Performed By: #### 2 [id number] #### [facility] [address] [place] [address] Main OR Intraoperative Recor don 01-04-2025 Main OR Intraoperative Record Main OR Intraoperative Record IntraOp Document Type FT Summary Primary Physician: Kassandra MCGUIRE, Jim Sheffield Finalized Date/Time: 01/04/25 14:58:56 Pt. Name: PAT MICHAEL./Sex: 1985 Male Med Rec #: [id number] Physician: Sujit Mckay MD Financial #: [id number] Pt. Type: I Room/Bed: [place] [address] Admit/Disch: 01/03/25 19:15:28 - Institution: Case Times FT Entry 1 Patient Times In Room 01/04/25 12:36:00 Out Room 01/04/25 14:54:00 Procedure Times Start 01/04/25 12:58:00 Stop 01/04/25 14:42:00 Anesthesia Times Start 01/04/25 12:36:00 Stop 01/04/25 14:54:00 Last Modified By: Julia Horne Ii 01/04/25 14:54:02 Case Attendance FT Entry 1 Entry 2 Entry 3 Case Attendee Kaden YODER, Dale Cannon MD, Jim Kennedy CST, Lizeth Silveira Role Performed BEBA Surgeon - Primary Scrub - Primary Time In 01/04/25 12:36:00 01/04/25 12:50:00 01/04/25 12:36:00 Time Out 01/04/25 13:51:00 01/04/25 14:33:00 01/04/25 14:54:00 Procedure CHOLECYSTECTOMY CHOLECYSTECTOMY CHOLECYSTECTOMY LAPAROSCOPIC W/ CHOLANGI LAPAROSCOPIC W/ CHOLANGI LAPAROSCOPIC W/ CHOLANGI Comments DR. BAIRES CHIP TUNER Last Modified By: Julia Horne Ii F Chadd Horneons Ii F Coleen Alfons Ii F 01/04/25 14:54:03 01/04/25 14:54:03 01/04/25 14:54:03 Entry 4 Entry 5 Entry 6 Case Attendee Julia Horne Ii Sheng Boudreaux PANitoC, Palmer CARRERA, Tiago Packer Role Performed Mandrel Maker - Primary PA/BINDERY MANAGER Staff - Other Time In 01/04/25 12:36:00 01/04/25 12:40:00 01/04/25 12:36:00 Time Out 01/04/25 14:54:00 01/04/25 14:54:00 01/04/25 12:58:00 Procedure CHOLECYSTECTOMY CHOLECYSTECTOMY CHOLECYSTECTOMY LAPAROSCOPIC W/ CHOLANGI LAPAROSCOPIC W/ CHOLANGI LAPAROSCOPIC W/ CHOLANGI Comments position help Last Modified By: Julia Horne Ii Chadd Haons Ii F Coleen Alfons Ii F 01/04/25 14:54:03 01/04/25 14:54:03 01/04/25 14:54:03 Entry 7 Entry 8 Case Attendee Jose Baires Jr, DO IRON MELTERCorwin Role Performed Anesthesiologist of IRON MELTER Record Time In 01/04/25 13:51:00 01/04/25 14:11:00 Time Out 01/04/25 14:11:00 01/04/25 14:54:00 Procedure CHOLECYSTECTOMY CHOLECYSTECTOMY LAPAROSCOPIC W/ CHOLANGI LAPAROSCOPIC W/ CHOLANGI Comments anesthesia relief Last Modified By: Julia Horne Ii F Chadd Horneons Ii F 01/04/25 14:54:03 01/04/25 14:54:03 Perioperative Protocols FT Pre-Care Text: Implements protective measures prior to operative or invasive procedure, confirms identity before the operative or invasive procedure, verifies operative procedure, surgical site, and laterality Entry 1 Procedure(s) CHOLECYSTECTOMY Patient Identity Birthday, Blood Band, LAPAROSCOPIC W/ CHOLANGI Verified (select at ID Band Check, Patient least 2): Participation Consents / H and P Anesthesia Consent, Operative Site N/A Verified H&P, Surgery/Procedure Marking Verified Consent, Transfusion Consent Surgical Site Yes Laterality Verified n/a Verified Procedure Verified Yes Correct Patient Yes Position Verified Availability Equipment, Medication Prep Dry Yes Verified (If Applicable) PreOp Antibiotic Yes Time Out Dale Alfonso CRNA, Given Participants Kassandra MCGUIRE, Jim Sheffield, Brent CARRERA, Lizeth Silveira, Julia Horne Ii, Richardson PA-C, Palmer Fishman CST, Tiago Time Out Complete 01/04/25 12:55:00 Outcomes Met? Yes Last Modified By: Julia Horne Ii 01/04/25 13:01:56 Post-Care Text: The patient is free from signs and symptoms of injury caused by extraneous objects Allergy Information FT Pre-Care Text: Verifies allergies Entry 1 Allergies Reviewed? Yes Allergies Reviewed Self/Patient With Outcomes Met? Yes Last Modified By: Julia Horne Ii 01/04/25 13:02:23 Post-Care Text: The patient received appropriate medication(s) safely administered during the perioperative period Surgical Procedures FT Entry 1 Procedure Description Procedure CHOLECYSTECTOMY Surgeon Description LAPAROSCOPIC LAPAROSCOPIC W/ CHOLECYSTECTOMY, CHOLANGIOGRAM BILATERAL TAP BLOCK Primary Procedure Yes Primary Surgeon Kassandra MCGUIRE, Jim Sheffield Start 01/04/25 12:58:00 Stop 01/04/25 14:42:00 Anesthesia Type General Surgical Service General Wound Class 2 - Clean-Contaminated Last Modified By: Julia Horne Ii 01/04/25 14:42:08 General Case Data FT Pre-Care Text: Classifies surgical wound, implements aseptic technique, initiates traffic control Entry 1 Case Information OR OR 2 FT Case Level Level 3 Wound Class 2 - Clean-Contaminated Specialty General ASA Class 3 Preop Diagnosis CHOLECYSTITIS Postop Same As Preop Yes Postop Diagnosis CHOLECYSTITIS Outcomes Met? Yes Last Modified By: Julia Horne Ii 01/04/25 14:58:47 Post-Care Text: The patient is free from signs and symptoms of infection Skin Assessment (Pre Procedure) FT Pre-Care Text: Implements protective measures to prevent skin/ tissue injury due to the (more content not included)... [facility] Main OR PACU I Recordon 12-16 Main OR PACU I Record Main OR PACU I Rec ord PACU Phase I Document Type FT Summary Primary Physician: Jim Cannon MD Finalized Date/Time: 01/04/25 16:28:25 Pt. Name: PAT MICHAEL./Sex: 1985 Male Med Rec #: [id number] Physician: Sujit Mckay MD Financial #: [id number] Pt. Type: I Room/Bed: 18/ Admit/Disch: 01/03/25 19:15:28 - Institution: Case Times PACU I FT Pre-Care Text: Identifies barriers to communication and implements measures to provide psychological support Develops individualized plan of care, and ensures continuity of care Maintains patient's dignity and privacy, and maintains patient confidentiality Identifies and reports philosophical, cultural, and spiritual beliefs and values Identifies individual values and wishes concerning care Implements aseptic technique, and administers prescribed antibiotic therapy and immunizing agents as ordered Evaluates postoperative tissue perfusion Implements thermoregulation measures, and monitors body temperature Evaluates postoperative respiratory status Evaluates postoperative cardiac status Evaluates postoperative neurological status Assesses pain control, collaborated in initiating patient-controlled analgesia and implements alternative methods of pain control Verifies allergies, administers prescribed medications and solutions, evaluates response to medications Entry 1 In PACU I 01/04/25 14:55:00 Discharge from PACU 01/04/25 16:05:00 I Outcomes Met? Yes Last Modified By: Shelly Pacheco RN 01/04/25 16:28:14 Post-Care Text: The patient demonstrates knowledge of the expected response to the operative or invasive procedure The patient's care is consistent with the individualized perioperative plan of care The patient's right to privacy is maintained The patient's value system, lifestyle, ethnicity, and culture are considered, respected, and incorporated into the perioperative plan of care The patient participates in decisions affecting his or her perioperative plan of care The patient is free from signs and symptoms of infection The patient has wound/tissue perfusion consistent with or improved from baseline levels established preoperatively The patient is at or returning to normothermia at the conclusion of the immediate postoperative period The patient's respiratory function is consistent with or improved from baseline levels established preoperatively The patient's cardiovascular status is consistent with or improved from baseline levels established preoperatively The patient's cardiovascular status is consistent with or improved from baseline levels established preoperatively The patient demonstrates and/or reports adequate pain control throughout the perioperative period The patient received appropriate medication(s), safely administered during the perioperative period Acuity Level PACU I FT Entry 1 Start Time 01/04/25 14:55:00 Stop Time 01/04/25 16:05:00 Acuity Level Acuity Level I Last Modified By: Shelly Pacheco RN 01/04/25 16:28:24 Finalized By: Shelly Pacheco RN Document Signatures Signed By: Shelly Pacheco RN 01/04/25 16:28 [facility] Main OR Preoperative Recordo n 01-04-2025 Main OR Preoperative Record Main OR Preoperative Record PreOp Document Type FT Summary Primary Physician: Jim Cannon MD Finalized Date/Time: 01/04/25 12:55:31 Pt. Name: PAT MICHAEL./Sex: 1985 Male Med Rec #: [id number] Physician: Sujit Mckay MD Financial #: [id number] Pt. Type: I Room/Bed: [place] [address] Admit/Disch: 01/03/25 19:15:28 - Institution: Case Times PreOp FT Pre-Care Text: Verifies consent for planned procedure, identifies individual values and wishes concerning care, includes family members in perioperative teaching Entry 1 Patient Times. In Pre Surgery 01/04/25 11:50:00 Out Pre Surgery 01/04/25 12:34:00 Outcomes Met? Yes Last Modified By: Julia Horne Ii 01/04/25 12:55:30 Post-Care Text: The patient participates in decisions affecting his or her perioperative plan of care Finalized By: Julia Horne Ii Document Signatures Signed By: Julia Horne Ii 01/04/25 12:55 [facility] Operative Reporton Operative Report Operative Report Indication for Surgery Patient is a 39-year-old male who presented in transfer from an outside emergency department with recurrent pancreatitis. CT scan was performed at the outside hospital which showed evidence of acute pancreatitis with gallstones within the gallbladder. Because patient has had multiple bouts of pancreatitis and had gallstones, it was decided to take the patient for laparoscopic cholecystectomy. Preoperative Diagnosis Gallstone pancreatitis Postoperative Diagnosis Gallstone pancreatitis Operation Laparoscopic cholecystectomy, bilateral tap block Surgeon(s) Jim Cannon MD (Surgeon - Primary) Director Of Professional Services FEDERICO Yancey Anesthesia General [facility] Jose Pham DO (Inner Layer Scrubber Tender) Dale Alfonso CRNA (Other) Corwin Bustillo CRNA (Other) Estimated Blood Loss 25 cc Urine Output N/A Findings Inflamed omentum surrounding the gallbladder with adhesions to the gallbladder. Noninflamed gallbladder Specimen(s) Pathology Tissue Exam (Gallbladder,AP Specimen) Complications None immediate Technique The patient was brought to the operating room placed in the supine position on the operating room table. General anesthesia was induced and the patient was intubated without complications. The patient's abdomen was prepped and draped in traditional sterile fashion. Timeout was performed confirming the correct patient, procedure, site. A 15 blade scalpel was used to create approximately 2 cm curvilinear supraumbilical incision. Dissection was carried down sharply with Metzenbaum scissors until the fascia was identified. The fascia was then grasped with 2 kochers and a 15 blade scalpel was used to incise the fascia. The abdomen was then bluntly entered using a Giuliana clamp. Two 0-0 Vicryl stay sutures were then placed within the fascia. A 12 mm port was then placed in the abdominal cavity and the abdomen was insufflated to 15 mmHg. We inspected the underlying bowel/mesentery for any iatrogenic injuries, none were identified. We then performed a bilateral tap block using 20 cc of Exparel and 30 cc of 0.25% Marcaine. Next, we placed three 5 mm ports under direct visualization, 1 subxiphoid, 1 in the right upper quadrant at the midclavicular line and 1 in the right upper quadrant at the anterior axillary line. We then inspected the right upper quadrant and it appeared that omentum was stuck to the dome and the anterior wall of the gallbladder. We carefully dissected this using a combination of blunt dissection and the hook electrocautery. The omentum was extremely friable during this dissection, likely from inflammation from his pancreatitis. We are able to control this oozing using electrocautery. We were then able to retract the dome of the gallbladder cranially and observe the hepatocystic triangle. Using combination of blunt dissection and hook electrocautery we dissected out the cystic duct and cystic artery and obtained a critical view of safety with 2 and only 2 structures entering the gallbladder with the bed of the liver behind. We then clipped and divided the cystic duct and artery. We then took the gallbladder off the bed of the liver. The gallbladder was then placed in an Endo Catch bag and removed from the abdominal cavity. We inspected the bed of the liver which appeared to be hemostatic. We inspected our previously placed clips which appeared to be intact. We irrigated the right upper quadrant and suctioned till clear. We then again inspected the friable omentum which appeared to be hemostatic. Next, we removed all 5 mm ports under direct visualization and we remove the 12 mm port and the abdomen was desufflated. Unfortunately our previous stay sutures had been dislodged so we used additional 0-0 Vicryl sutures in interrupted fashion to close the fascial defect on the 12 mm port. The skin at all port sites was closed with a 4-0 Monocryl. Dermabond was then applied to all incisions. The patient tolerated the procedure well with no immediate complications. He was awoken from anesthesia and extubated without issues. He was then transported to PACU in stable condition. All counts are correct at the end of the case. [facility] Comment on above: Result Comment: Elec tronically Signed By: Kassandra MCGUIRE, Jim Sheffield\.br\Date and Time Signed: 01/04/25 14:50 EDT PT & PTTon 01-04-2025 INR Coag (PPP) [Relative time] 1.08 {INR} Invalid Interpretation Code [facility] Comment on above: Result Comment: INR results are specifically intended to assess patients stabilized on long-term Anticoagulation therapy suggested INR???s ???Less Intensive Anticoagulation??? 2.0 ??? 3.0 Conventional Range 3.0 ??? 4.5 Performed By: #### 1 [id number] #### [facility] [address] [place] [address] PT 12.1 second(s) Normal 9.4-12.5 [facility] Comment on above: Result Comment: 15 d ays - 4 weeks 1 - 5 months 6 -11 months 1 ??? 5 years 6 ??? 10 years 11 -17 years Mean: 11.2 (9.5 ??? 12.6) Mean: 11.0 (9.7 ??? 12.8) Mean: 11.0 (9.8 ??? 13.0) Mean: 11.3 (9.9 ??? 13.4) Mean: 11.7 (10.0 ??? 14.6) Mean: 11.8 (10.0 - 14.1) Pediatric Reference ranges were obtained from a study by rosa Lerma prepared from 1437 samples obtained at 7 different centers using the same coagulation reagent and instrumentation as [facility]. Currently there are no coagulation studies available worldwide for children to 14 days, and no normal ranges. Performed By: #### 1 [id number] #### [facility] [address] [place] [address] PTT 28.0 second(s) Normal 25.1-36.5 [facility] Comment on above: Result Comment: Para meter 15 days - 4 weeks 1 - 5 months 6 - 11 months 1 - 5 years 6 - 10 years 11 - 17 years PTT Mean: 35.4 (27.6-45.6) Mean: 33.5 (24.8-40.7) Mean: 32.4 (25.1-40.7) Mean: 31.6 (24.0-39.2) Mean: 31.6 (26.9-38.7) Mean: 31.0 (24.6-38.4) Pediatric Reference ranges were obtained from a study by rosa Lerma prepared from 1437 samples obtained at 7 different centers using the same coagulation reagent and instrumentation as [facility]. Currently there are no coagulation studies available worldwide for children to 14 days, and no normal ranges. Heparin therapeutic range (represented by Anti-Factor Xa activity of 0.2 - 0.4 U/mL) corresponds to PTT of 56.6 - 109.0 sec. Performed By: #### 1 [id number] #### [facility] [address] [place] [address] eGFRon 01-04-2025 eGFR 132 mL/min/1.73 m2 Normal >=59 [facility] Comment on above: Performed By: #### 1 [id number] #### [facility] [address] [place] [address] ABO/Rhon 01-03-2025 ABO/Rh Positive Invalid Interpretation Code [facility] Comment on above: Performed By: #### 2 [id number] #### [facility] [address] [place] [address] ABSCon 01-03-2025 ABSC Gel Interp Negative [facility] Comment on above: Performed By: #### 1 [id number] #### [facility] [address] [place] [address] Blood Bank ID#on 01-03-2025 BBID# [id number] Invalid Interpretation Code [facility] Comment on above: Performed By: #### 1 [id number] #### [facility] [address] [place] [address] Glucose (Bld) [Mass/Vol]Orde red By: Jackie Floyd on 08-04-2024 Glucose Blood, POC 125 mg/dL [facility] - Hematology and Cell countson 08-04-2024 HbA1c (Bld) [Mass fraction] 9.4 % [facility] No Panel InformationOrdered By: Jackie Floyd on 08-04-2024 [facility] Glucose (Bld) [Mass/Vol]Orde red By: Jackie Floyd on 04-13-2024 Glucose Blood, POC 133 mg/dL [facility] - Other Lab [facility] - Other Lab Results [id number] Normal [facility] Chlamydia/GC/Trich NAAon Chlamydia Trachomotis, WHITNEY Negative Normal Negative [facility] Comment on above: Performed By: #### H ERPES 1,2, GCCHLAMTRI #### [facility] , Neisseria Gonorrhoeae, WHITNEY Negative Normal Negative [facility] Comment on above: Performed By: #### H ERPES 1,2, GCCHLAMTRI #### [facility] , Trichomonas WHITNEY Negative Normal Negative [facility] Comment on above: Result Comment: Perf ormed at: =G - [facility] [address] [place], [place] [id number] Etl Manager: Lindsey Mckeon MD, Phone: [phone] Performed By: #### H ERPES 1,2, GCCHLAMTRI #### [facility] , Herpes Simplex 1 and 2, NAAo n 10-28-2023 HSV 1 WHITNEY Negative Normal Negative [facility] Comment on above: Result Comment: This test was developed and its performance characteristics determined by [facility]. It has not been cleared or approved by the Food and Drug Administration. Performed By: #### H ERPES 1,2, GCCHLAMTRI #### [facility] , HSV 2 WHITNEY Positive Critically abnormal Negative [facility] Comment on above: Result Comment: This test was developed and its performance characteristics determined by [facility]. It has not been cleared or approved by the Food and Drug Administration. Performed at: - [facility] [id number] Etl Manager: Og Wilson MD, Phone: [phone] PERFORMED BY: [address] [address] PATHOLOGIST ENGRAVER CARISA MATTHEWS M.D. Performed By: #### H ERPES 1,2, GCCHLAMTRI #### [facility] , COVID Cepheidon 08-22-2023 SARS-CoV-2 (COVID-19) RNA WHITNEY+probe Ql (Unsp spec) Negative [facility] No Panel Informationon 08-21 POC Influenza A (PCR) Positive [facility] POC Influenza B (PCR) Negative [facility] Vital Signs Date Time Vital Sign Value Performing Clinician Facility 02-03-2025 11:48-0400 Body height 190.5 cm Peace Antony MD Work Phone: [facility] 02-03-2025 11:48-0400 Body mass index (BMI) [Ratio] 38.87 kg/m2 Peace Antony MD Work Phone: [facility] 02-03-2025 11:48-0400 Body weight 141.07 kg Peace Antony MD Work Phone: [facility] 02-03-2025 11:48-0400 Diastolic blood pressure 80 mm[Hg] Peace Antony MD Work Phone: [facility] 02-03-2025 11:48-0400 Heart rate 69 /min Peace Antony MD Work Phone: [facility] 02-03-2025 11:48-0400 Respiratory rate 16 /min Peace Antony MD Work Phone: [facility] 02-03-2025 11:48-0400 SaO2% (BldA) [Mass fraction] 99 % Peace Antony MD Work Phone: [facility] 02-03-2025 11:48-0400 Systolic blood pressure 130 mm[Hg] Peace Antony MD Work Phone: [facility] 08-04-2024 09:55-0500 Body height 189.2 cm Peace Antony MD Work Phone: [facility] 08-04-2024 09:55-0500 Body mass index (BMI) [Ratio] 42.31 kg/m2 Peace Antony MD Work Phone: [facility] 08-04-2024 09:55-0500 Body weight 151.5 kg Peace Antony MD Work Phone: [facility] 08-04-2024 09:55-0500 Diastolic blood pressure 72 mm[Hg] Peace Antony MD Work Phone: [facility] 08-04-2024 09:55-0500 Heart rate 78 /min Peace Antony MD Work Phone: [facility] 08-04-2024 09:55-0500 Respiratory rate 18 /min Peace Antony MD Work Phone: [facility] 08-04-2024 09:55-0500 SaO2% (BldA) [Mass fraction] 98 % Peace Antony MD Work Phone: [facility] 08-04-2024 09:55-0500 Systolic blood pressure 150 mm[Hg] Peace Antony MD Work Phone: [facility] 04-13-2024 10:12-0400 Body height 190.5 cm Peace Antony MD Work Phone: [facility] 04-13-2024 10:12-0400 Body mass index (BMI) [Ratio] 40.25 kg/m2 Peace Antony MD Work Phone: [facility] 04-13-2024 10:12-0400 Body weight 146.06 kg Peace Antony MD Work Phone: [facility] 04-13-2024 10:12-0400 Diastolic blood pressure 80 mm[Hg] Peace Antony MD Work Phone: [facility] 04-13-2024 10:12-0400 Heart rate 75 /min Peace Antony MD Work Phone: [facility] 04-13-2024 10:12-0400 Respiratory rate 16 /min Peace Antony MD Work Phone: [facility] 04-13-2024 10:12-0400 Systolic blood pressure 126 mm[Hg] Peace Antony MD Work Phone: [facility] 10-28-2023 09:40-0400 Body height 190.5 cm [facility] 10-28-2023 09:40-0400 Body mass index (BMI) [Ratio] 38.9 kg/m2 [facility] 10-28-2023 09:40-0400 Body temperature 98.1 [degF] [facility] 10-28-2023 09:40-0400 Body weight 141.52 kg [facility] 10-28-2023 09:40-0400 Diastolic blood pressure 83 mm[Hg] [facility] 10-28-2023 09:40-0400 Heart rate 80 /min [facility] 10-28-2023 09:40-0400 Respiratory rate 18 /min [facility] 10-28-2023 09:40-0400 SaO2% (BldA) [Mass fraction] 98 % [facility] 10-28-2023 09:40-0400 Systolic blood pressure 140 mm[Hg] [facility] 08-22-2023 15:02-0500 Body height 190.5 cm [facility] 08-22-2023 15:02-0500 Body mass index (BMI) [Ratio] 40.4 kg/m2 [facility] 08-22-2023 15:02-0500 Body temperature 97.9 [degF] [facility] 08-22-2023 15:02-0500 Body weight 146.51 kg [facility] 08-22-2023 15:02-0500 Diastolic blood pressure 79 mm[Hg] [facility] 08-22-2023 15:02-0500 Heart rate 75 /min [facility] 08-22-2023 15:02-0500 Respiratory rate 18 /min [facility] 08-22-2023 15:02-0500 SaO2% (BldA) [Mass fraction] 97 % [facility] 08-22-2023 15:02-0500 Systolic blood pressure 130 mm[Hg] [facility] Encounters Encounter Date Encounter Type Care Provider Facility Start: 02-03-2025 End: 02-03-2025 Bamboo flowsheet Peace Antony MD Work Phone: [facility] Start: 02-03-2025 End: 02-03-2025 Bamboo flowsheet Peace Antony MD Work Phone: [facility] Start: 02-03-2025 End: 02-03-2025 Office outpatient visit 25 minutes Peace Antoyn MD Work Phone: [facility] Comment on above: Type 2 diabetes flakita itus with hyperglycemia, with long-term current use of insulin (HCC) (Primary Dx); Vitamin D deficiency; Insulin long-term use (HCC); Hyperlipemia, mixed ; Primary hypertension ; Class 2 severe obesity due to excess calories with serious comorbidity and body mass index (BMI) of 38.0 to 38.9 in adult ([facility]) Start: 02-03-2025 End: 02-03-2025 ambulatory PEACE ANTONY Not Available Start: 01-21-2025 End: 01-21-2025 ambulatory Rita Mummert DO Facility: [facility] Start: 01-06-2025 End: 01-06-2025 ambulatory Rita Mummert DO Facility: [facility] Start: 01-03-2025 End: 01-05-2025 Evaluation and management of inpatient Nelson Alvarado [place] Start: 10-19-2024 End: 10-19-2024 ambulatory Rita Mummert DO Facility: [facility] Start: 09-10-2024 ambulatory Rita Mummert DO Faci lity: [facility] Start: 08-18-2024 ambulatory Rita Mummert DO Faci lity: [facility] Start: 08-04-2024 End: 08-04-2024 Carissa Antony MD Work Phone: [facility] Start: 08-04-2024 End: 08-04-2024 Carissa Antony MD Work Phone: [facility] Start: 08-04-2024 End: 08-04-2024 ambulatory PEACE ANTONY Not Available Start: 08-04-2024 End: 08-04-2024 Office outpatient visit 25 minutes Peace Antony MD Work Phone: [facility] Comment on above: Type 2 diabetes flakita itus with hyperglycemia, with long-term current use of insulin (CMS/HCC) (Primary Dx); Vitamin D deficiency; Insulin long-term use (CMS/HCC); Hyperlipemia, mixed (CMS/HCC); Primary hypertension (CMS/HCC); Class 3 severe obesity due to excess calories with serious comorbidity and body mass index (BMI) of 40.0 to 44.9 in adult ([facility]/HCC) Start: 04-13-2024 End: 04-13-2024 Carissa Antony MD Work Phone: [facility] Start: 04-13-2024 End: 04-13-2024 Carissa Antony MD Work Phone: [facility] Start: 04-13-2024 End: 04-13-2024 Office outpatient visit 25 minutes Peace Antony MD Work Phone: [facility] Comment on above: Type 2 diabetes flakita itus with hyperglycemia, with long-term current use of insulin (CMS/[facility]) (Primary Dx); Vitamin D deficiency; Insulin long-term use ([facility]); Hyperlipemia, mixed (CMS/[facility]); Primary hypertension (CMS/HCC); Class 3 severe obesity due to excess calories with serious comorbidity and body mass index (BMI) of 40.0 to 44.9 in adult ([facility]/HCC) Start: 04-13-2024 End: 04-13-2024 ambulatory PEACE ANTONY Not Available Start: 02-21-2024 End: 02-21-2024 ambulatory Rita Mummert DO Facility: [facility] Start: 02-12-2024 End: 02-12-2024 ambulatory Rita Mummert DO Facility: [facility] Start: 01-29-2024 ambulatory Rita Mummert DO Faci lity: [facility] Start: 10-28-2023 End: 10-28-2023 ambulatory [facility] Facility:[facility] Start: 10-28-2023 End: 10-28-2023 ambulatory [facility] Work Phone: Start: 10-28-2023 End: 10-28-2023 Patient encounter procedure [facility] Work Phone: Start: 08-22-2023 End: 08-22-2023 Patient encounter procedure [facility] Work Phone: Procedures Date Procedure Procedure Detail Performing Clinician Start: 02-03-2025 Gluc bld gluc mntr d ev cleared fda spec home use Peace Antony MD Work Phone: Start: 08-04-2024 Gluc bld gluc mntr d ev cleared fda spec home use Peace Antony MD Work Phone: Start: 04-13-2024 Gluc bld gluc mntr d ev cleared fda spec home use Peace Antony MD Work Phone: Plan of Treatment Date Care Activity Detail Author Start: 06-23-2025 End: 06-23-2025 Patient encounter procedure 06/23/2025 9:50 AM EST Office Visit [facility] [address] [place] [phone] Peace Antony MD [address] [place] [address] [facility] Start: 02-03-2025 End: 02-03-2025 Patient encounter procedure 02/03/2025 11:30 AM EDT Office Visit [facility] [address] [place] [phone] Peace Antony MD [address] [place] [address] Type 2 diabetes mellitus with hyperglycemia, with long-term current use of insulin ([facility]) [facility] Comment on above: Type 2 diabetes flakita itus with hyperglycemia, with long-term current use of insulin (HCC) Start: 12-01-2024 End: 12-01-2024 Patient encounter procedure 12/01/2024 9:50 AM EDT Office Visit [facility] [address] [place] [phone] Peace Antony MD [address] [place] [address] [facility] Start: 08-03-2024 End: 08-03-2024 Patient encounter procedure 08/03/2024 9:40 AM EST Office Visit [facility] [address] [place] [phone] Peace Antony MD [address] [place] [address] [facility] Start: 04-13-2024 End: 04-13-2024 Patient encounter procedure 04/13/2024 10:10 AM EDT Office Visit [facility] [address] [place] [phone] Peace Antony MD [address] [place] [address] Type 2 diabetes mellitus with hyperglycemia, with long-term current use of insulin ([facility]) [facility] Comment on above: Type 2 diabetes flakita itus with hyperglycemia, with long-term current use of insulin ([facility]) [facility] Immunizations Immunization Date Immunization Notes Care Provider Fa [facility] 04-12-2022 influenza, injectabl e, quadrivalent, preservative free Peace Anotny MD Work Phone: [facility] 03-30-2019 influenza, injectabl e, quadrivalent, preservative free Peace Antony MD Work Phone: [facility] Payers Date Payer Category Payer Self-pay 2019 [facility] er [id number] 2019 Unknown [id number] 1985 Unknown [id number] [id number]. 2. 1985 Unknown [id number] 2.16.840.1.892471.3.579. 2. 1985 Unknown [id number] 2.16.840.1.001286.3.579. 2. 1984 Unknown [id number] 2.16.840.1.119623.3.579. 2. 1985 Unknown [id number] 2.16.840.1.891267.3.579. 2.8 1984 Unknown [id number] 2.16.840.1.497178.3.579. 2. 1985 Unknown [id number] 2.16.840.1.320633.3.579. 2. 1985 Unknown [id number] 2.16.840.1.670262.3.579. 2. 1985 Unknown [id number] 2.16.840.1.255631.3.579. 2. 1985 Unknown [id number] 2.16.840.1.980808.3.579. 2. 1985 Unknown [id number] 2.16.840.1.452376.3.579. 2.9 1985 Unknown [id number] 2.16.840.1.981201.3.579. 2.9 1984 Unknown [id number] 2.16.840.1.614069.3.579. 2.1259 1984 Unknown [id number] 2.16.840.1.826277.3.579. 2.727 Unknown [id number] 2.16.840.1.178992.3.579. 2.531 Social History Date Type Detail Facility Start: 08-22-2023 Tobacco smoking status NMIS Never smoked tobacco (finding) [facility] Start: 1985 Sex Assigned At Male F [facility] Tobacco smoking status NMIS Tobacco smoking consumption unknown [facility] Start: 1985 Sex assigned at Not on file [facility] Gender identity [facility] Clinical Notes 02-21-2024 to 02-03-2025 Peace Antony MD - 02/03/2025 11:30 AM Kristen Antony MD - 08/04/2024 9:40 AM Ayse Antony MD - 04/13/2024 10:10 AM EDT Note Date & Type Note Facility 02-03-2025 History of Present illness Narrative Pat Michael is a 39 y.o. male No ref. provider found presents with chief complaint of Diabetes and Follow-up HPI: IM 01/2025 Follow-up visit 02/03/2025 A1c 8.2, blood sugar 188, currently is on Toujeo 50 units, Jardiance 25 mg once a day, metformin 1000 twice a day. IM 07/2024 Follow-up visit 08/04/2024 A1c with [...] HPI: 11/2023 New patient sent from Dr. Rita Nugent for uncontrolled diabetes. A1c in our office 8.1. Blood sugar 139. He has diabetes since 2011. No complication other than neuropathy. He is currently on Toujeo 40 and Jardiance 25, metformin 1000 twice a day. Work at [employer]. Pioglitazone does not like it, so he [...] MG tablet 1 tablet, Daily Toujeo SoloStar 51 Units, Subcutaneous, Daily ALLERGIES: No Known Allergies Past Medical History: Diagnosis Date Dietary counseling and surveillance HLD (hyperlipidemia) HTN (hypertension) Obesity with body mass index (BMI) of 30.0 to 39.9 Type 2 diabetes mellitus with hyperglycemia (HCC) Vitamin D deficiency Past Surgical History: Procedure [...] no Lab Results Component Value Date HGBA1C 8.2 02/03/2025 HGBA1C 9.4 08/04/2024 Lab Results Component Value Date GLU 188 02/03/2025 GLU 125 08/04/2024 GLU 133 04/13/2024 11/26/2023 11:25 AM 04/13/2024 10:12 AM 08/04/2024 9:55 AM 02/03/2025 11:48 AM Vitals BMI 39.87 kg/m2 40.25 kg/m2 42.31 kg/m2 38.87 kg/m2 BSA (m2) 2.77 m2 2.78 m2 2.83 m2 2.73 m2 Systolic 118 126 150 130 Diastolic 78 80 72 80 Heart Rate 71 75 78 69 SpO2 99 % 98 % 99 % Resp 18 16 18 16 Height (in) 6' 3 6' 3 6' 2.5 6' 3 Weight (lb) 319 322 334 311 Visit Report Report Report Report ASSESSMENT AND PLAN: Assessment/Plan Diagnoses and all orders for this visit: Type 2 diabetes mellitus with hyperglycemia, with long-term current use of insulin ([facility]) - POCT glucose manually resulted - POCT glycosylated hemoglobin (Hb A1C) docked device - insulin glargine (Toujeo SoloStar) 300 UNIT/ML injection; Inject 51 Units under the skin Daily I will c/o his Toujeo to 50 units at bedtime, continue with metformin 1000 twice a day, continue with Jardiance 25 mg once a day we will see him in 4 months. Vitamin D deficiency Insulin long-term use ([facility]) Hyperlipemia, mixed Primary hypertension Class 2 severe obesity due to excess calories with serious comorbidity and body mass index (BMI) of 38.0 to 38.9 in adult ([facility]) Diet and exercise reviewed with the patient Follow up in about 4 months (around 06/05/2025). documented in this encounter [facility] 01-21-2025 Note Entered by CLARENCE GONZALEZ MA on January 21, 2025 07:42:37 EDT From: SHAHRAM GONZALEZ MA To: [facility]/pharmacy #[id number] Sent: 01/21/2025 07:42:37 EDT Subject: Medication Management Submitted: Complete:lisinopril (lisinopril 20 mg oral tablet) Signed by SHAHRAM GONZALEZ MA 01/21/2025 07:42:00 EDT Approved with modifications: lisinopril (LISINOPRIL 20 MG TABLET) TAKE 1 TABLET BY MOUTH EVERY DAY Qty: 90 tab(s) Days Supply: 90 Refills: 3 Substitutions Allowed Route To Pharmacy - [facility]/pharmacy #[id number] Signed by SHAHRAM GONZALEZ MA Patient matched by SHAHRAM GONZALEZ MA on 01/21/2025 07:42:08 EDT --------- From: [id number] To: Rita Nugent DO, DO Sent: January 20, 2025 11:28:55 PM CDT Subject: Medication Management Due: January 21, 2025 12:05:31 AM CDT On Hold Pending Signature Dispensed Drug: lisinopril (lisinopril 20 mg oral tablet), TAKE 1 TABLET BY MOUTH EVERY DAY Quantity: 90 tab(s) Days Supply: 90 Refills: 3 Substitutions Allowed Notes from Pharmacy: --------- [facility] 01-08-2025 Note Discharge [place] [address] PAT MICHAEL Date of : 1985 39 Years Male Steve MCGUIRE, Sujit Massey Date of Admission01/03/2025 19:15:28 Date of Discharge 01/05/2025 10:55:55 DIAGNOSES: 1) gallstone pancreatitis 2) s/p laparoscopic cholecystectomy with Dr. Cannon on 01/04/25 PROCEDURES: Procedures Arthroscopy of knee Reconstruction of nose Cholecystectomy (01/04/2025) DISCHARGE MEDICATIONS: DISCHARGE MEDICATIONS Medication List Active Medications Ordered acetaminophen: 650 mg, 2 tab(s), Oral, q6hr. atorvastatin: 20 mg, 1 tab(s), Oral, Daily. bisacodyl: 10 mg, 2 tab(s), Oral, Daily, PRN: Constipation. bisacodyl: 10 mg, 1 supp, Rectal, Daily, PRN: Constipation. enoxaparin: 40 mg, 0.4 mL, SubCutaneous, BID. HYDROmorphone: 0.5 mg, 0.5 mL, IV Push, q4hr, PRN: Breakthrough Pain. insulin lispro: 0-10 unit(s), SubCutaneous, q6hrFT. magnesium hydroxide: 30 mL, Oral, Daily, PRN: Constipation. ondansetron: 4 mg, 2 mL, IV Push, q6hr, PRN: Nausea/Vomiting. pantoprazole: 40 mg, 1 tab(s), Oral, Daily. Prescribed acetaminophen: 650 mg, 2 tab(s), Oral, q6hr, for 14 day(s), 112 tab(s), 0 Refill(s). ibuprofen: 800 mg, 1 tab(s), Oral, q6hr, for 14 day(s), 56 tab(s), 0 Refill(s). oxycodone: 5 mg, 1 cap(s), Oral, q6hr, for 3 day(s), PRN: for pain, 12 cap(s), 0 Refill(s). Documented empagliflozin: 25 mg, 1 tab(s), Oral, qAM, 0 Refill(s). insulin glargine: 50 unit(s), SubCutaneous, Daily, 0 Refill(s). lisinopril: 20 mg, 1 tab(s), Oral, Daily, 0 Refill(s). metformin: 1,000 mg, 1 tab(s), Oral, BID, 0 Refill(s). omeprazole: 20 mg, 1 cap(s), Oral, Daily, 0 Refill(s). rosuvastatin: 10 mg, 1 tab(s), Oral, Daily, 0 Refill(s). Medications Inactivated in the Last 72 Hours acetaminophen: 650 mg, 2 tab(s), Oral, q4hr, PRN: Pain 1-3. acetaminophen: 1,000 mg, 100 mL, IV, Once. acetaminophen: Misc, Once. bupivacaine: Misc, Once. bupivacaine: 75 mg, 30 mL, Misc, Once. bupivacaine liposome: Misc, Once. bupivacaine liposome: 266 mg, 20 mL, Misc, Once. cefazolin: Misc, Once. cefazolin + Sodium Chloride 0.9% intravenous solution 100 mL: 3 gram, 1 EA, 200 mL/hr, IV Piggyback, PREOP. dexamethasone: Misc, Once. dexamethasone: 8 mg, 2 mL, IV, Once. dexmedetomidine: Misc, Once. dexmedetomidine: 10 mcg, 0.1 mL, IV, Once. dexmedetomidine: 10 mcg, 0.1 mL, IV, Once. dexmedetomidine: 10 mcg, 0.1 mL, IV, Once. fentanyl: Misc, Once. fentanyl: 25 mcg, 0.5 mL, IV, Once. fentanyl: 25 mcg, 0.5 mL, IV, Once. HYDROmorphone: 1 mg, 1 mL, IV Push, q4hr, PRN: Pain 8-10. HYDROmorphone: 1 mg, 1 mL, IV, Once. HYDROmorphone: 0.4 mg, 0.4 mL, IV Push, q4min, PRN: Pain. insulin lispro: Misc, Once. insulin lispro: Misc, Once. ketamine: Misc, Once. ketamine: 20 mg, 0.4 mL, IV, Once. ketamine: 10 mg, 0.2 mL, IV, Once. ketamine: 10 mg, 0.2 mL, IV, Once. ketamine: 10 mg, 0.2 mL, IV, Once. ketorolac: Misc, Once. ketorolac: 200 mg, 6.67 mL, IV, Once. Lactated Ringers Injection: 850 mL, IV, Once. Lactated Ringers Injection 1,000 mL: 125 mL/hr, IV, Stop: 02/02/25 21:07:00 EDT. Lactated Ringers Injection 1,000 mL: 150 mL/hr, IV, Stop: 02/03/25 10:59:00 EDT. Lactated Ringers Injection 1,000 mL: 100 mL/hr, IV, Stop: 02/03/25 15:33:00 EDT. lidocaine: Misc, Once. lidocaine: 60 mg, 3 mL, IV, Once. magnesium hydroxide: 30 mL, Oral, Once. midazolam: Misc, Once. midazolam: 2 mg, 2 mL, IV, Once. ondansetron: 4 mg, 2 mL, IV, Once. oxycodone: 5 mg, 1 tab(s), Oral, q4hr, PRN: Pain 4-7. oxycodone: 5 mg, 1 tab(s), Oral, Once, PRN: Pain 8-10. oxycodone: 2.5 mg, 0.5 tab(s), Oral, Once, PRN: Pain 4-7. promethazine 12.5 mg + Sodium Chloride 0.9% intravenous solution 50 mL: 12.5 mg, 0.5 mL, 151.5 mL/hr, IV Piggyback, Once, PRN: Nausea/Vomiting. propofol: Misc, Once. propofol: Misc, Once. propofol: 230 mg, 23 mL, IV, Once. rocuronium: Misc, Once. rocuronium: 50 mg, 5 mL, IV, Once. rocuronium: 10 mg, 1 mL, IV, Once. rocuronium: 10 mg, 1 mL, IV, Once. rocuronium: 10 mg, 1 mL, IV, Once. rocuronium: 10 mg, 1 mL, IV, Once. sodium chloride: 20 mL, Misc, Once. Sodium Chloride 0.9% intravenous solution: Misc, Once. Sodium Chloride 0.9% intravenous solution: Misc, Once. Sodium Chloride 0.9% intravenous solution: Misc, Once. Sodium Chloride 0.9% intravenous solution: Misc, Once. sugammadex: Misc, Once. sugammadex: 30 mg, 0.3 mL, IV, Once. [use for patients going to inpatient rehab only, otherwise delete this list of meds] REASON FOR HOSPITALIZATION: PAT MICHAEL is a 39 Years-old Male with a PMHx of DM2, Hypertension, HLD, GERD, Pancreatitis. Patient was transported to [facility] ED on 01/03/2025 19:15:28. Pt states he has had abdominal pain for the past 4 days. The pain is present in the epigastrium. It started out mild, but increased in intensity over the past (more content not included)... [facility] Comment on above: Result Comment: Elec tronically Signed By: Mone Boudreaux PA-C\.br\Date and Time Signed: 01/05/25 11:02 EDT\.br\Electronically Co-Signed By: Jim Cannon MD\.br\Date and Time Co-Signed: 01/08/25 08:21 EDT 01-06-2025 Note Progress Note-Physic gwen Patient: PAT MICHAEL Age: 39 years Sex: Male : 1985 Associated Diagnoses: None Author: Jose Baires Jr, DO Preoperative Information Anesthesia Preop Info: Time patient last ate or drank 01/04/2025 00:00:00. Anesthesia history: Patient history: None. Family history+: None. Informed consent: Signed by patient. Re-evaluation prior to induction: Initial evaluation reviewed: No significant change. Review of Systems Eye: Negative except as documented in history of present illness. Ear/Nose/Mouth/Throat: Negative except as documented in history of present illness. Respiratory: Negative except as documented in history of present illness. Cardiovascular: Negative except as documented in history of present illness. Musculoskeletal: Negative except as documented in history of present illness. Neurologic: Negative except as documented in history of present illness. Health Status Allergies: Allergic Reactions (Selected) No Known Allergies Problem list: All Problems Diabetes / SNOMED CT 927717987 / Confirmed Histories Procedure history: Arthroscopy of knee (228027312). Reconstruction of nose (990110208). Social History Social & Psychosocial Habits No Data Available . Physical Examination Airway: Mallampati classification: II (soft palate, fauces, uvula visible). Respiratory: adequate air exchange. Cardiovascular: Regular rhythm. Plan [place] [employer]hesi[employer] (ASA) physical status classification: Class III. Anesthetic Preoperative Plan: Anesthesia General, and Patient educated on benefits, alternatives and inherent risk of anesthesia including, but not all inclusive, Allergic reactions, dental damage, nerve damage and cardio-pulmonary complications and wishes to proceed with anesthetic plan.. [facility] Comment on above: Result Comment: Elec tronically Signed By: Jose Baires Jr, DO\.br\Date and Time Signed: 01/06/25 16:50 EDT 01-06-2025 Note Progress Note-Physic gwen Patient: PAT MICHAEL Age: 39 years Sex: Male : 1985 Associated Diagnoses: None Author: Jose Baires Jr, DO Postoperative Information Postoperative disposition: Postoperative disposition: To PACU. Optimetrix number: Optimetrix number [id number]. Anesthetic utilized: General. Health Status Allergies: Allergic Reactions (Selected) No Known Allergies Physical Examination Vital Signs 01/04/2025 16:00 EDT SpO2 93 % 01/04/2025 16:00 EDT Respiratory Rate Monitored 12 br/min 01/04/2025 16:00 EDT Heart Rate Monitored 80 bpm 01/04/2025 16:00 EDT Temperature Temporal Artery 36.6 DegC Systolic Blood Pressure 109 mmHg Diastolic Blood Pressure 69 mmHg Mean Arterial Pressure, Cuff 82 mmHg Hourly Rounding Yes Promise to Return Yes 01/04/2025 15:50 EDT Heart Rate Monitored 77 bpm Respiratory Rate Monitored 11 br/min SpO2 92 % 01/04/2025 15:50 EDT Systolic Blood Pressure 106 mmHg Diastolic Blood Pressure 69 mmHg Mean Arterial Pressure, Cuff 81 mmHg 01/04/2025 15:37 EDT SpO2 94 % 01/04/2025 15:35 EDT SpO2 89 % 01/04/2025 15:35 EDT Heart Rate Monitored 77 bpm Respiratory Rate Monitored 18 br/min 01/04/2025 15:35 EDT Systolic Blood Pressure 108 mmHg Diastolic Blood Pressure 69 mmHg Mean Arterial Pressure, Cuff 82 mmHg 01/04/2025 15:25 EDT Respiratory Rate Monitored 16 br/min 01/04/2025 15:25 EDT Heart Rate Monitored 78 bpm 01/04/2025 15:25 EDT SpO2 91 % 01/04/2025 15:25 EDT Systolic Blood Pressure 109 mmHg Diastolic Blood Pressure 62 mmHg Mean Arterial Pressure, Cuff 78 mmHg 01/04/2025 15:10 EDT SpO2 99 % 01/04/2025 15:10 EDT Heart Rate Monitored 80 bpm 01/04/2025 15:10 EDT Respiratory Rate Monitored 16 br/min Systolic Blood Pressure 105 mmHg Diastolic Blood Pressure 61 mmHg Mean Arterial Pressure, Cuff 76 mmHg 01/04/2025 15:05 EDT Respiratory Rate Monitored 20 br/min 01/04/2025 15:05 EDT SpO2 98 % 01/04/2025 15:05 EDT Heart Rate Monitored 78 bpm 01/04/2025 15:05 EDT Systolic Blood Pressure 106 mmHg Diastolic Blood Pressure 55 mmHg LOW Mean Arterial Pressure, Cuff 72 mmHg 01/04/2025 15:00 EDT Heart Rate Monitored 80 bpm 01/04/2025 15:00 EDT SpO2 97 % 01/04/2025 15:00 EDT Respiratory Rate Monitored 23 br/min 01/04/2025 15:00 EDT Systolic Blood Pressure 105 mmHg Diastolic Blood Pressure 56 mmHg LOW Mean Arterial Pressure, Cuff 72 mmHg 01/04/2025 14:56 EDT Heart Rate Monitored 80 bpm 01/04/2025 14:56 EDT Respiratory Rate Monitored 11 br/min 01/04/2025 14:55 EDT SpO2 98 % 01/04/2025 14:55 EDT Systolic Blood Pressure 110 mmHg Diastolic Blood Pressure 59 mmHg 01/04/2025 14:55 EDT Temperature Temporal Artery 36.4 DegC Heart Rate Monitored 80 bpm Respiratory Rate Monitored 12 br/min Blood Pressure Location Right arm Mean Arterial Pressure, Cuff 76 mmHg Pain Assessment: Controlled. General: Awake, Alert, Appropriate. Respiratory: Adequate air exchange. Cardiovascular: Stable, Normal peripheral perfusion. Neurological: Normal sensory function, Normal motor function. Assessment Anesthetic outcome No anesthetic complications noted. Adequate pain relief. able to void without difficulty, able to ambulate with assist, tolerating PO intake, no N/V. Review / Management Condition: Stable. Plan Transfer/Discharge: Transfer/Discharge Discharge when meets criteria ( From PACU to floor ). [facility] Comment on above: Result Comment: Elec tronically Signed By: Jose Baires Jr, DO\Date and Time Signed: 01/06/25 16:50 EDT 01-04-2025 Note History and Physical EM ERGENCY GENERAL SURGERY CONSULT / H&P Patient Name: PAT MICHAEL Admission Date: 01/03/2025 19:15:28 Chief Complaint: Epigastric pain Referring Physician: Jacqueline Patient seen and examined on 01/04/2025 07:01:35 HI STORY OF PRESENT ILLNESS PAT MICHAEL is a 39 Years-old Male with a PMHx of DM2 Hypertension HLD GERD Pancreatitis Patient was transported to [facility] ED on 01/03/2025 19:15:28. Pt states he has had abdominal pain for the past 4 days. The pain is present in the epigastrium. It started out mild, but increased in intensity over the past couple of days. Yesterday the pain moved to the back which is what triggered the patient to come to the ED. He has had pancreatitis previously which was attributed to diabetes medications. He is not on anticoagulation. He has had no prior abdominal surgeries. PAST MEDICAL HISTORY: DM2 Hypertension HLD GERD Pancreatitis PAST SURGICAL HISTORY: Arthroscopy of knee Reconstruction of nose PRE-ADMISSION MEDICATIONS: empagliflozin: 25 mg = 1 tab(s), Oral, qAM insulin glargine: 50 unit(s), SubCutaneous, Daily lisinopril: 20 mg = 1 tab(s), Oral, Daily metformin: 1,000 mg = 1 tab(s), Oral, BID omeprazole: 20 mg = 1 cap(s), Oral, Daily rosuvastatin: 10 mg = 1 tab(s), Oral, Daily ALLERGIES: Allergies (1) Active Severity Reaction No Known Allergies None Documented SOCIAL HISTORY: Social History No active social history has been recorded Psychosocial History No active psychosocial history has been recorded FAMILY HISTORY: No family history recorded. RE VIEW OF SYSTEMS All organ systems are reviewed. Pertinent positive and negative findings as mentioned in the HPI. PH YSICAL EXAM General: alert?, no acute? distress Skin: warm?, dry? Head: normocephalic? Eye: normal? conjunctiva, sclera clear? ENMT: oral mucosa moist?, Cardiovascular: regular? rate and rhythm, normal? peripheral perfusion Respiratory: Lungs CTA?,respirations non labored? Chest wall: no? deformity. Gastrointestinal: Mild tenderness epigastrium Back: No? tenderness, Normal? ROM, Normal? alignment. Extremities: no? deformity, no? trauma Neurological: oriented x 4?, LOC appropriate for age?, speech normal? Psychiatric: cooperative?, affect appropriate for age? BA SIC LABS Last 24 Hours Basic Metabolic Panel: Hematology: : () HGB: 13.3 (01/04/25) : () : () : () : () : () : () : () : () Creatinine: 0.5 (01/04/25) : () Additional - Last 24 Hours A/G Ratio: 1.2 (01/04/25) ABO/Rh: A POS (01/03/25) ABSC Gel Interp: Negative (01/03/25) AGAP: 15 (01/04/25) Albumin Lvl: 3.8 (01/04/25) Alk Phos: 76 (01/04/25) ALT: 15 (01/04/25) AST: 11 (01/04/25) Basophil Absolute: 0.0 (01/04/25) Basophil Auto: 0.1 (01/04/25) Bili Direct: 0.1 (01/04/25) Bili Indirect: 0.7 (01/04/25) Bili Total: 0.8 (01/04/25) BUN: 18 (01/04/25) BUN/Creat Ratio: 36 (01/04/25) Calcium Lvl: 9.3 (01/04/25) Chloride: 102 (01/04/25) CO2: 22 (01/04/25) eGFR: 132 (01/04/25) Eos Absolute: 0.0 (01/04/25) Eos Auto: 0.3 (01/04/25) Globulin: 3.2 (01/04/25) Glucose Lvl: 81 (01/04/25) Hct: 39.2 (01/04/25) INR: 1.08 (01/04/25) Lipase Lvl: 69 (01/04/25) Lymph Absolute: 1.5 (01/04/25) Lymph Auto: 14.6 (01/04/25) MCH: 31.8 (01/04/25) MCHC: 34.0 (01/04/25) MCV: 93.6 (01/04/25) [place] Absolute: 0.9 (01/04/25) [place] Auto: 8.3 (01/04/25) MPV: 8.7 (01/04/25) Neutro Absolute: 8.0 (01/04/25) Neutro Auto: 76.7 (01/04/25) Platelet: 203.0 (01/04/25) Potassium Lvl: 4.0 (01/04/25) PT: 12.1 (01/04/25) PTT: 28.0 (01/04/25) RBC: 4.2 (01/04/25) RDW: 13.9 (01/04/25) Sodium Lvl: 135 (01/04/25) Total Protein: 7.0 (01/04/25) WBC: 10.4 (01/04/25) RA DIOLOGY CT reviewed, in PACS Stransing around the head of the pancreas Gallstones present ME DICAL DECISION MAKING ASSESSMENT: 39 year old male presenting as a transfer from [place] ED for abdominal pain EGS workup found pancreatitis, possibly secondary to biliary source. He has also had 2 episodes of pancreatitis previously which were attributed to DM medications. It is unclear of the source of pancreatitis, but will gallstones present, it is reasonable to remove the gallbladder. PLAN: Admit to surgery, inpatient status Pancreatitis symptoms seem nearly resolved NPO for OR today for lap cholecystectomy Appropriate home meds restarted Begin (more content not included)... [facility] Comment on above: Result Comment: Elec tronically Signed By: Nely MCGUIRE, Sujit Mae.br\Date and Time Signed: 01/04/25 07:09 EDT 10-19-2024 Note Entered by CLARENCE GONZALEZ MA on October 19, 2024 08:06:36 EDT From: SHAHRAM GONZALEZ MA To: [facility]pharmacy #[id number] Sent: 10/19/2024 08:06:36 EDT Subject: Medication Management Submitted: Complete:rosuvastatin (rosuvastatin 10 mg oral tablet) Signed by SHAHRAM GONZALEZ MA 10/19/2024 08:06:00 EDT Approved with modifications: rosuvastatin (ROSUVASTATIN CALCIUM 10 MG TAB) TAKE 1 TABLET BY MOUTH EVERY DAY Qty: 90 tab(s) Days Supply: 90 Refills: 3 Substitutions Allowed Route To Pharmacy - [facility]/pharmacy #[id number] Signed by SHAHRAM GONZALEZ MA Patient matched by SHAHRAM GONZALEZ MA on 10/19/2024 08:03:45 EDT --------- From: [id number] To: Rita Nugent DO, DO Sent: October 17, 2024 6:43:07 AM CDT Subject: Medication Management Due: October 18, 2024 12:19:22 AM CDT On Hold Pending Signature Dispensed Drug: rosuvastatin (rosuvastatin 10 mg oral tablet), TAKE 1 TABLET BY MOUTH EVERY DAY Quantity: 90 tab(s) Days Supply: 90 Refills: 3 Substitutions Allowed Notes from Pharmacy: --------- [facility] 08-04-2024 History of Present illness Narrative Pat Michael is a 39 y.o. male No ref. [...] HPI: 11/2023 New patient sent from Dr. Rita Nugent for uncontrolled diabetes. A1c in our office 8.1. Blood sugar 139. He has diabetes since 2011. No complication other than neuropathy. He is currently on Toujeo 40 and Jardiance 25, metformin 1000 twice a day. Work at [employer]. Pioglitazone does not like it, so he [...] Date Dietary counseling and surveillance HLD (hyperlipidemia) ([facility]) HTN (hypertension) ([facility]) Obesity with body mass index (BMI) of 30.0 to 39.9 Type 2 diabetes mellitus with hyperglycemia ([facility]) Vitamin D deficiency Past Surgical History: Procedure [...] hyperglycemia, with long-term current use of insulin ([facility]) - POCT glucose manually resulted - POCT glycosylated hemoglobin (Hb A1C) docked device I will c/o his Toujeo to 55 units at bedtime, continue with metformin 1000 twice a day, continue with Jardiance 25 mg once a day we will see him in 4 months. Vitamin D deficiency Insulin long-term use ([facility]) Hyperlipemia, mixed ([facility]) Primary hypertension ([facility]) Class 3 severe obesity due to excess calories with serious comorbidity and body mass index (BMI) of 40.0 to 44.9 in adult ([facility] Diet and exercise reviewed with the patient Follow up in about 4 months (around 12/02/2024). documented in this encounter [facility] 05-20-2024 Note Entered by CLARENCE GONZALEZ MA on May 20, 2024 14:32:29 EST From: SHAHRAM GONZALEZ MA To: [facility] #[id number] Sent: 05/20/2024 14:32:28 EST Subject: Medication Management Submitted: Complete:insulin glargine (Toujeo SoloStar 300 units/mL subcutaneous solution) Signed by SHAHRAM GONZALEZ MA 05/20/2024 14:32:00 EST Approved with modifications: insulin glargine (TOUJEO SOLOSTAR 300 UNIT/ML) INJECT 30 UNITS UNDER THE SKIN ONCE DAILY Qty: 9 unknown unit Days Supply: 90 Refills: 3 Substitutions Allowed Route To Pharmacy - [facility]/pharmacy #[id number] Signed by SHAHRAM GONZALEZ MA --------- From: [id number] To: Rita Nugent DO, DO Sent: May 20, 2024 1:25:00 PM 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 male No ref. provider found presents with chief complaint of Diabetes and Follow-up (LAB IN [facility]/A1C 6 WEEKS AGO 8.5%) HPI: IM 03/2024 [...] HPI: 11/2023 New patient sent from Dr. Rita Nugent for uncontrolled diabetes. A1c in our office 8.1. Blood sugar 139. He has diabetes since 2011. No complication other than neuropathy. He is currently on Toujeo 40 and Jardiance 25, metformin 1000 twice a day. Work at [employer]. Pioglitazone does not like it, so he [...] Date Dietary counseling and surveillance HLD (hyperlipidemia) ([facility]) HTN (hypertension) ([facility]) Obesity with body mass index (BMI) of 30.0 to 39.9 Type 2 diabetes mellitus with hyperglycemia ([facility]) Vitamin D deficiency Past Surgical History: Procedure [...] hyperglycemia, with long-term current use of insulin ([facility]) - POCT glucose manually resulted I will increase his Toujeo to 55 units at bedtime, continue with metformin 1000 twice a day, continue with Jardiance 25 mg once a day we will see him in 4 months, he is not interested with prandial insulin at this time. Vitamin D deficiency Level 17 replace by his PCP Insulin long-term use ([facility]) Hyperlipemia, mixed ([facility]) LDL 109 ON 03/2024, continue with Crestor Primary hypertension ([facility]) Class 3 severe obesity due to excess calories with serious comorbidity and body mass index (BMI) of 40.0 to 44.9 in adult ([facility]) Diet and exercise reviewed with the patient Follow up in about 4 months (around 08/14/2024). documented in this encounter [facility] 02-21-2024 Note Entered by CLARENCE GONZALEZ MA on February 21, 2024 10:12:44 EDT From: SHAHRAM GONZALEZ MA To: [facility]/pharmacy #[id number] Sent: 02/21/2024 10:12:44 EDT Subject: Medication Management Submitted: Complete:empagliflozin (empagliflozin 25 mg oral tablet) Signed by SHAHRAM GONZALEZ MA 02/21/2024 10:12:00 EDT Approved with modifications: empagliflozin (JARDIANCE 25 MG TABLET) TAKE 1 TABLET BY MOUTH EVERY MORNING Qty: 90 tab(s) Days Supply: 90 Refills: 3 Substitutions Allowed Route To Pharmacy - [facility]/pharmacy #[id number] Signed by SHAHRAM GONZALEZ MA Patient matched by SHAHRAM GONZALEZ MA on 02/21/2024 10:12:16 EDT --------- From: [facility] STORE [id number] To: Rita Nugent DO, DO Sent: February 21, 2024 9:06:59 AM CDT Subject: Medication Management Due: February 22, 2024 12:08:35 AM CDT On Hold Pending Signature Dispensed Drug: empagliflozin (Jardiance 25 mg oral tablet), TAKE 1 TABLET BY MOUTH EVERY MORNING Quantity: 90 tab(s) Days Supply: 90 Refills: 3 Substitutions Allowed Notes from Pharmacy: --------- [facility] Evaluation note Diagnosis Onset Date Contact with and (suspected) exposure to covid-19 noneactive Influenza A (H1N1) noneactiv e High risk sexual behavior no neactive [facility] Work Phone: Evaluation note* Diagnosis Type 2 diabetes mellitus with hyperglycemia, with long-term current use of insulin ([facility])- Primary Vitamin D deficiency Insulin long-term use ([facility]) Encounter for long-term (current) use of insulin Hyperlipemia, mixed (CMS/HCC) Mixed hyperlipidemia Primary hypertension ([facility]) Unspecified essential hypertension Class 3 severe obesity due to excess calories with serious comorbidity and body mass index (BMI) of 40.0 to 44.9 in adult ([facility]) documented in this encounter [facility] HealthcareEvaluation note* Diagnosis Type 2 diabetes mellitus with hyperglycemia, with long-term current use of insulin ([facility])- Primary Vitamin D deficiency Insulin long-term use ([facility]) Encounter for long-term (current) use of insulin Hyperlipemia, mixed (CMS/HCC) Mixed hyperlipidemia Primary hypertension ([facility]) Unspecified essential hypertension Class 3 severe obesity due to excess calories with serious comorbidity and body mass index (BMI) of 40.0 to 44.9 in adult ([facility]) documented in this encounter [facility] HealthcareEvaluation note* Diagnosis Type 2 diabetes mellitus with hyperglycemia, with long-term current use of insulin ([facility])- Primary Vitamin D deficiency Insulin long-term use ([facility]) Encounter for long-term (current) use of insulin Hyperlipemia, mixed Mixed hyperlipidemia Primary hypertension Unspecified essential hypertension Class 2 severe obesity due to excess calories with serious comorbidity and body mass index (BMI) of 38.0 to 38.9 in adult ([facility]) documented in this encounter [facility] Healthcare Chief Complaint and Reason [...] Team Status: Active Member Role Status Dates [facility] Primary Care Provider Active Team Status: Inactive Member Role Status Dates Jailene Monique APRN Attending Provider Active Start: August 22, 2023 End: August 22, 2023 [facility] Primary Care Provider Active Start: August 22, 2023 End: August 22, 2023 Team Status: Inactive Member Role Status Dates [facility] Primary Care Provider Active Start: October 28, 2023 End: October 28, 2023 Laurence Jacome APRN Attending Provider Active Start: October 28, 2023 End: October 28, 2023 Machine Assembler Supervisor Relationship Specialty Start Date End Date Rita Nugent DO [address] [place] [address] PCP - General Internal Medicine 02/07/24 Machine Assembler Supervisor Relationship Specialty [place] [address] [place] [id number] PCP - General Internal Medicine 02/07/24 Machine Assembler Supervisor Relationship Specialty Start Date End Date Rita Nugent DO [address] [place] [address] PCP - General Internal Medicine 02/07/24 Machine Assembler Supervisor Relationship Specialty Start Date End Date Rita Nugent DO [address] [place] [address] PCP - General Internal Medicine 02/07/24 Machine Assembler Supervisor Relationship Specialty Start Date End Date Rita Nugent DO [address] [place] [address] PCP - General Internal Medicine 02/07/24 Goals (unrecognized section and content) Goals may be documented in a n alternate section (unrecognized sect ion and content) No Status Records FoundNo Status Records FoundNo Status Records FoundNo Status Records FoundNo Status Records FoundNo Status Records FoundNo Status Records FoundNo Status Records FoundNo Status Records FoundNo Status Records FoundNo Status Records FoundNo Status Records FoundNo Status Records FoundNo Status Records FoundNo Status Records FoundNo Status Records FoundNo Status Records FoundNo Status Records FoundNo Status Records FoundNo Status Records FoundNo Status Records FoundNo Status Records FoundNo Status Records Found INFORMATION SOURCE (unrecogn ized section and content) DATE CREATED AUTHOR 11/05/2023 [facility] DATE CREATED AUTHOR AUTHOR'S ORGANIZ ATION 01/05/2025 [facility] DATE CREATED AUTHOR AUTHOR'S ORGANIZ ATION 01/06/2025 [facility] DATE CREATED AUTHOR AUTHOR'S ORGANIZ ATION 01/23/2025 [facility] DATE CREATED AUTHOR AUTHOR'S ORGANIZ ATION 01/23/2025 [facility] DATE CREATED AUTHOR AUTHOR'S ORGANIZ ATION 02/05/2025 [facility] DATE CREATED AUTHOR AUTHOR'S ORGANIZ ATION 02/06/2025 [facility] Reason for Visit (unrecogniz ed section and content) Reason Comments Diabetes Follow-up LAB IN [id number] 6 8.5% Reason Comments Diabetes Follow-up FOR RECORDS [...] BE BASED ON THE PRIMARY CLINICAL RECORDS. [employer] provides no warranty or guarantee of the accuracy or completeness of information in this document.
[2025-03-23 16:25] LABS: Hematocrit 53.8 % (42.0-54.0); Hemoglobin 17.8 g/dL (14.0-18.0); Immature Granulocytes Abs Auto 0.03 10^3/uL (0.00-0.03); Immature Granulocytes Pct Auto 0.3 % (0.0-0.5); Lymphocytes Absolute Auto 1.5 10^3/uL (1.2-3.8); Mean Corpuscular HGB Conc 33.1 g/dL (29.9-35.2); Mean Corpuscular Hemoglobin 31.7 pg (25.9-34.0); Mean Corpuscular Volume 95.7 fL (80.0-94.0); Platelet Count 269 10^3/uL (150-450); Red Blood Count 5.62 10^6/uL (4.70-6.10); White Blood Count 9.0 10^3/uL (4.0-11.0)
[2025-03-23 16:46] LABS: Alanine Aminotransferase 23 U/L (16-63); Albumin Globulin Ratio 0.7; Albumin Level 3.8 g/dL (3.4-5.0); Alkaline Phosphatase 94 U/L (46-116); Anion Gap 28.3; Aspartate Amino Transferase 22 U/L (15-37); Blood Urea Nitrogen 23.0 mg/dL (7.0-18.0); Calcium 9.7 mg/dL (8.5-10.1); Carbon Dioxide 14.6 mmol/L (21.0-32.0); Chloride 97 mmol/L (98-107); Estimated GFR (African America >60 (>=60 mL/min/1.73m^2); Estimated GFR (Non-African Ame >60 (>=60 mL/min/1.73m^2); Globulin 5.2 g/dL; Glucose 163 mg/dL (74-106); Lipase 25.0 U/L (16.0-77.0); Potassium 3.9 mmol/L (3.5-5.1); Sodium 136 mmol/L (136-145); Total Protein 9.0 g/dL (6.4-8.2)
[2025-03-23 17:26] VITALS: PULSE 103
[2025-03-23 18:02] VITALS: BP 127/87; PULSE 102; O2SAT 97
--- NOTE | 2025-03-24 07:49 | ED.GENADUL1 ---
HPI HPI - General Adult General Chief complaint: Nausea/Vomiting/Diarrhea Stated complaint: Dehydration Time Seen by Provider: 03/23/25 15:51 Source: patient Mode of arrival: walk-in Limitations: no limitations History of Present Illness HPI narrative: Patient is a 40-year-old male presenting to the emergency department for evaluation of nausea, vomiting, diarrhea. Patient states symptoms have been ongoing for the last 3 days. He states he initially had multiple episodes of diarrhea daily, however it is actually improved today. He states he had 2 episodes of nonbilious, nonbloody vomiting today as well. He denies any significant abdominal pain. No fevers or chills. No chest pain or shortness of breath. Denies any history of intra-abdominal surgeries other than a cholecystectomy performed a few months ago on 01/04. Related Data Home Medications ?Medication ?Instructions ?Recorded ?Confirmed empagliflozin 25 mg tablet 25 mg PO DAILY 01/03/25 01/03/25 (Jardiance) insulin glargine U-300 conc 300 55 unit subcut Q24H 01/03/25 01/03/25 unit/mL (1.5 mL) subcutaneous pen (Toujeo SoloStar U-300 Insulin) lisinopril 20 mg tablet 20 mg PO DAILY 01/03/25 01/03/25 metformin 1,000 mg tablet 1,000 mg PO BID 01/03/25 01/03/25 rosuvastatin 10 mg tablet 10 mg PO DAILY 01/03/25 01/03/25 Allergies Allergy/AdvReac Type Severity Reaction Status Date / Time No Known Drug Allergies Allergy Verified 03/23/25 15:46 Opioid HPI Opioid Management Most Recent Opioid Data: Last Pain Scale 4 03/23/25, 15:46 Review of Systems ROS Status of ROS 10 or more systems reviewed and unremarkable except as noted in history and below [facility] Medical History (Updated 03/23/25 @ 17:35 by Aj Man DO) Pancreatitis ?K85.90 - Acute pancreatitis without necrosis or infection, unspecified (ICD-10) Hyperlipemia ?E78.5 - Hyperlipidemia, unspecified (ICD-10) Hypertension ?I10 - Essential (primary) hypertension (ICD-10) Diabetes ?E11.9 - Type 2 diabetes mellitus without complications (ICD-10) Social History Little interest or pleasure in doing things: not at all Feeling down, depressed, or hopeless: not at all Exam Narrative Exam Narrative: CONSTITUTIONAL: Appears fatigued but nontoxic, answering questions and following commands appropriately SKIN: Was warm and dry. EYES: No scleral icterus. EARS, NOSE, THROAT: Moist oral mucosa. RESPIRATORY: Clear to auscultation bilaterally, no wheezes, crackles, or stridor, no use of accessory muscles CARDIOVASCULAR: Normal rate and regular rhythm. There is no S3, S4, murmur, rub. GASTROINTESTINAL: Abdomen is soft, nontender, and nondistended. No rebound tenderness or guarding. MUSCULOSKELETAL: No peripheral edema. NEUROLOGIC: Patient is awake and alert. Facies were symmetrical. Constitutional Vital Signs, click to edit/add: Last Vital Signs Temp 97.5 F L 03/23/25 15:46 Pulse 102 H 03/23/25 18:02 Resp 18 03/23/25 18:02 BP 127/87 03/23/25 18:02 Pulse Ox 97 03/23/25 18:02 O2 Del Method Room Air 03/23/25 18:02 Course Vital Signs Vital signs: Vital Signs Temperature 97.5 F L 03/23/25 15:46 Pulse Rate 127 H 03/23/25 15:46 Respiratory Rate 20 03/23/25 15:46 Blood Pressure 126/91 03/23/25 15:46 Pulse Oximetry 98 03/23/25 15:46 Temperature 97.5 F L 03/23/25 15:46 Pulse Rate 102 H 03/23/25 18:02 Respiratory Rate 18 03/23/25 18:02 Blood Pressure 127/87 03/23/25 18:02 Pulse Oximetry 97 03/23/25 18:02 Oxygen Delivery Method Room Air 03/23/25 18:02 Medical Decision Making [facility] Narrative Medical decision making narrative: Patient is a 40-year-old male presenting to the emergency department for evaluation of a 3-day history of nausea, vomiting, diarrhea. His vital signs arrival were significant for tachycardia, otherwise were within normal limits. He is afebrile and hemodynamically stable. He appears fatigued, but nontoxic. His abdomen soft and nontender. Differential diagnosis includes gastroenteritis, dehydration, or underlying electrolyte/metabolic derangement. Patient's exam is not consistent with surgical etiologies of abdominal pain such as appendicitis, diverticulitis, or perforated viscus. IV was established and laboratory studies were obtained. He was treated symptomatically with 1 L bolus normal saline, IV Zofran, and IV Toradol. Laboratory studies were unremarkable. No significant electrolyte or metabolic derangement. No evidence of acute kidney injury. No anemia, leukocytosis, or thrombocytopenia. No transaminitis or hyperbilirubinemia. Lipase nonelevated. On reevaluation, patient states he feels significantly improved. His tachycardia is improving. He is requesting to be discharged home so he can make it to work on time. I do believe the patient is stable for discharge. Patient's presentation is most likely consistent with viral gastroenteritis. They were instructed to follow up with his PCP for further care. Return precautions were given including any new or worsening symptoms. Patient understands and agrees to the plan. FINAL IMPRESSION: # Acute viral gastroenteritis DISPOSITION: Discharged home CONDITION: Good Medical Records Medical records reviewed: Yes I reviewed the patient's medical records Lab Data Lab results reviewed: Yes I reviewed the patient's lab results Labs: Lab Results 03/23/25 Range/Units 13:54 WBC 9.0 (4.0-11.0) 10^3/uL RBC 5.62 (4.70-6.10) 10^6/uL Hgb 17.8 (14.0-18.0) g/dL Hct 53.8 (42.0-54.0) % MCV 95.7 H (80.0-94.0) fL MCH 31.7 (25.9-34.0) pg MCHC 33.1 (29.9-35.2) g/dL RDW 14.0 (11.0-15.0) % Plt Count 269 (150-450) 10^3/uL MPV 10.3 (9.5-13.5) fL Neut % (Auto) 72.0 (43.0-75.0) % Lymph % (Auto) 16.3 L (20.5-60.0) % [place] % (Auto) 10.9 (1.7-12.0) % Eos % (Auto) 0.2 L (0.9-7.0) % Baso % (Auto) 0.3 (0.2-2.0) % Neut # (Auto) 6.5 (1.4-6.5) 10^3/uL Lymph # (Auto) 1.5 (1.2-3.8) 10^3/uL [place] # (Auto) 1.0 H (0.3-0.8) 10^3/uL Eos # (Auto) 0.0 (0.0-0.7) 10^3/uL Baso # (Auto) 0.0 (0.0-0.1) 10^3/uL Abs Immat Gran (auto) 0.03 (0.00-0.03) 10^3/uL Imm/Tot Granulo (auto) 0.3 (0.0-0.5) % Sodium 136 (136-145) mmol/L Potassium 3.9 (3.5-5.1) mmol/L Chloride 97 L (98-107) mmol/L Carbon Dioxide 14.6 L (21.0-32.0) mmol/L Anion Gap 28.3 BUN 23.0 H (7.0-18.0) mg/dL Creatinine 1.01 (0.70-1.30) mg/dL Est GFR ( Amer) >60 (>=60 mL/min/1.73m^2) Est GFR (Non-Af Amer) >60 (>=60 mL/min/1.73m^2) BUN/Creatinine Ratio 22.8 Glucose 163 H (74-106) mg/dL Calcium 9.7 (8.5-10.1) mg/dL Total Bilirubin 1.0 (0.2-1.0) mg/dL Direct Bilirubin 0.2 (0.0-0.2) mg/dL AST 22 (15-37) U/L ALT 23 (16-63) U/L Alkaline Phosphatase 94 (46-116) U/L Total Protein 9.0 H (6.4-8.2) g/dL Albumin 3.8 (3.4-5.0) g/dL Globulin 5.2 g/dL Albumin/Globulin Ratio 0.7 Lipase 25.0 (16.0-77.0) U/L Discharge Plan Discharge Chief Complaint: Nausea/Vomiting/Diarrhea Clinical Impression: Gastroenteritis Patient Disposition: Home, Self-Care Time of Disposition Decision: 17:35 Condition: Good Mode of Transportation: Private Vehicle Prescriptions / Home Meds: No Action Jardiance 25 mg tablet 25 mg PO DAILY lisinopril 20 mg tablet 20 mg PO DAILY rosuvastatin 10 mg tablet 10 mg PO DAILY metformin 1,000 mg tablet 1,000 mg PO BID insulin glargine U-300 conc [Toujeo SoloStar U-300 Insulin] 300 unit/mL (1.5 mL) insulin pen 55 unit SUBCUT Q24H Print Language: Thai Instructions: Acute Nausea and Vomiting (ED) Referrals: RITA NEW [Primary Care Provider, Family Practice] - 1 week Discharge Date/Time: 03/23/25 18:04
== END 2025-03-23 18:04 | disposition home or self-care (01) ==
PROVIDERS: Emergency Provider Student in an Organized Health Care Education/Training Program; PCP Internal Medicine
DX: A08.4 Viral intestinal infection, unspecified (principal); Z90.49 Acquired absence of other specified parts of digestive tract
CPT/HCPCS: 36415; 80053; 82248; 83690; 85025; 96361; 96374; 96375; 99284; J1885; J2405